=== PATIENT | female | born 1975 | race Caucasian/White ===

== ENCOUNTER → 2016-03-09 | Outpatient (REF) | payer BC ==
[~2016-03-09] MED LIST: ACET50TA PO; CIPR500T3 PO; COLA100C2; DRIS50002 PO; FEOSOL; GLYB5TAB5 PO; HYDR1TAB97 PO; IBUPOTC PO; IRON SUPPLEMENT PO; IRON325T3 PO; LASI20TA; LOPR100T; MULT1TAB10 PO; PERC5TAB6 PO; PERCOCET PO; PHEN-223 PO; PRIL20CA; PYRI200T; VICO5TAB; VITA100037 PO; VITA500T53 PO; [UNRECOGNIZED DRUG - OTHER]; [UNRECOGNIZED DRUG - OTHER]; [UNRECOGNIZED DRUG - REMARK]
== END ==
LOC: M SMT 10:19
PROVIDERS: ATTEND Urology
DX: N20.0 Calculus of kidney (principal)

== ENCOUNTER → 2016-03-17 | Outpatient (CLI) | payer BC ==
[~2016-03-17] MED LIST changes: +HYDR-3713 PO; -HYDR1TAB97 PO
[2016-03-17 13:51] LABS: IONIZED CALCIUM 5.3 MG/DL (4.5-5.3)
[2016-03-17 14:29] LABS: ANION GAP 9 MEQ/L (8-16); BLOOD UREA NITROGEN 7 MG/DL (7-18); CALCIUM LEVEL 9.9 MG/DL (8.5-10.1); CARBON DIOXIDE LEVEL 26 MEQ/L (21-32); CHLORIDE LEVEL 106 MEQ/L (98-107); CREATININE FOR GFR 0.48 MG/DL (0.55-1.02); GLOMERULAR FILTRATION RATE > 60.0 (>58); GLUCOSE, FASTING 87 MG/DL (70-105); MAGNESIUM LEVEL 2.1 MG/DL (1.8-2.4); PHOSPHORUS LEVEL 2.5 MG/DL (2.5-4.9); POTASSIUM SERUM 4.3 MEQ/L (3.5-5.1); SODIUM LEVEL 141 MEQ/L (136-145); URIC ACID 3.2 MG/DL (2.6-6.0)
== END ==
LOC: M SMT 10:32
PROVIDERS: ATTEND Nurse Practitioner Women's Health
DX: N20.0 Calculus of kidney (principal)

== ENCOUNTER → 2016-03-31 | Outpatient (CLI) | payer BC | LOC: M WUC 10:07 | PROVIDERS: ATTEND Internal Medicine Endocrinology, Diabetes & Metabolism | DX: E55.9 Vitamin D deficiency, unspecified (principal) ==

== ENCOUNTER → 2016-05-05 | Outpatient (CLI) | payer BC ==
--- NOTE | 2016-05-05 14:54 | REP ---
NUCLEAR PARATHYROID SCAN: Following the intravenous administration of 27.5 mCi of technetium 99m sestamibi, 15-minute delayed images are performed of the neck in the anterior and both anterior oblique projections followed by 3-hour delayed images in the same orientation. SPECT images are also performed of the neck in the axial, sagittal, and coronal planes. The initial 15-minute images show fairly symmetrical uptake in the thyroid bed. There is bilateral washout on the 3-hour delayed images. There is no persistent focus of increased uptake in the neck on the right or the left. There is no compelling scintigraphic evidence of parathyroid adenoma. IMPRESSION: No compelling scintigraphic evidence parathyroid adenoma. Signed by Bradley York MD 05/05/2016 04:44 P
== END ==
LOC: M RAD 09:38
PROVIDERS: ATTEND Physician Assistant Medical
DX: E21.4 Other specified disorders of parathyroid gland (principal)

== ENCOUNTER → 2016-07-20 | Outpatient (CLI) | payer BC | LOC: M WUC 09:15 | PROVIDERS: ATTEND Surgery | DX: E21.0 Primary hyperparathyroidism (principal) ==

== ENCOUNTER → 2016-08-11 | Outpatient (REF) | payer BC | LOC: M LAB REF 17:13 | PROVIDERS: ATTEND Specialist | DX: Z12.4 Encounter for screening for malignant neoplasm of cervix (principal) ==

== ENCOUNTER → 2016-09-06 | Outpatient (REF) | payer BC ==
[~2016-09-06] MED LIST changes: +PERC5TAB12 PO; -PERC5TAB6 PO; -PHEN-223 PO; +PHEN30CA2 PO; -VITA100037 PO; +VITA100067 PO
== END ==
LOC: M LAB REF 16:36
PROVIDERS: ATTEND Physician Assistant
DX: R30.0 Dysuria (principal)

== ENCOUNTER → 2016-09-12 | Outpatient (CLI) | payer BC ==
[2016-09-12 13:14] LABS: MEAN CORPUSCULAR HEMOGLOBIN 31.6 pg (27.0-33.0); MEAN CORPUSCULAR HGB CONC 34.8 g/dl (32.0-36.5); MEAN CORPUSCULAR VOLUME 90.9 fl (80.0-96.0); RED CELL DISTRIBUTION WIDTH 12.3 % (11.5-14.5); WHITE BLOOD COUNT 5.9 K/mm3 (4.0-10.0)
[2016-09-12 13:45] LABS: ALBUMIN 3.8 GM/DL (3.2-5.2); ALBUMIN/GLOBULIN RATIO 1.46 (1.00-1.93); ALKALINE PHOSPHATASE 90 U/L (45-117); ALT/SGPT 14 U/L (12-78); ANION GAP 8 MEQ/L (8-16); AST/SGOT 7 U/L (15-37); BILIRUBIN,TOTAL 0.4 MG/DL (0.2-1.0); BLOOD UREA NITROGEN 9 MG/DL (7-18); CALCIUM LEVEL 8.6 MG/DL (8.5-10.1); CARBON DIOXIDE LEVEL 25 MEQ/L (21-32); CHLORIDE LEVEL 106 MEQ/L (98-107); CHOLESTEROL LEVEL 166 MG/DL (<200); CREATININE FOR GFR 0.57 MG/DL (0.55-1.02); GLOMERULAR FILTRATION RATE > 60.0 (>58); GLUCOSE, FASTING 86 MG/DL (70-105); SODIUM LEVEL 139 MEQ/L (136-145); TOTAL PROTEIN 6.4 GM/DL (6.4-8.2); TRIGLYCERIDES LEVEL 123 MG/DL (<150)
== END ==
LOC: M WUC 09:35
PROVIDERS: ATTEND Nurse Practitioner Family
DX: E55.9 Vitamin D deficiency, unspecified (principal); E78.00 Pure hypercholesterolemia, unspecified

== ENCOUNTER → 2016-09-22 | Outpatient (REF) | payer BC | LOC: M SMT 16:58 | PROVIDERS: ATTEND Nurse Practitioner Women's Health | DX: N20.0 Calculus of kidney (principal) ==

== ENCOUNTER → 2016-10-04 | Outpatient (CLI) | payer BC ==
--- NOTE | 2016-10-04 10:05 | REP ---
CT ABDOMEN AND PELVIS WITHOUT CONTRAST: CT abdomen performed without oral or IV contrast, with sagittal and coronal reconstruction images performed. Comparison 02/11/2016. Visualized lung bases are clear. The patient has had a prior cholecystectomy and also appears to have had a prior gastric bypass surgery. The liver, spleen, adrenals, and pancreas are grossly unremarkable. Once again, there are multiple tiny calcifications in both kidneys and the configuration is essentially unchanged compared to the prior CT exam. The largest is in the lower pole of the right kidney and measures approximately 7 mm in diameter. No ureteral calculi are seen and there is no hydroureteronephrosis. Approximately 4 intrarenal calcifications are seen on the right and approximately 9 or 10 are seen on the left. There is no abdominal aortic aneurysm. There is no adenopathy. There is no free air or free fluid. No definite bowel wall thickening is seen. A few small midline anterior abdominal wall hernias are unchanged. No pelvic mass is seen. A metallic clip is seen in the left adnexal region. The urinary bladder is not optimally distended and therefore, not optimally evaluated. IMPRESSION: Multiple intrarenal calcifications appear essentially unchanged when compared to the prior study of 02/11/2016. Signed by Bradley York MD 10/04/2016 11:58 A
== END ==
LOC: M RAD 08:36
PROVIDERS: ATTEND Nurse Practitioner Women's Health
DX: N20.0 Calculus of kidney (principal)

== ENCOUNTER → 2016-11-22 | Outpatient (CLI) | payer BC ==
[2016-11-22 13:58] LABS: VITAMIN B12 LEVEL 771 PG/ML (247-911)
[2016-11-22 14:13] LABS: ALBUMIN 3.8 GM/DL (3.2-5.2); ALBUMIN/GLOBULIN RATIO 1.27 (1.00-1.93); ALKALINE PHOSPHATASE 87 U/L (45-117); ALT/SGPT 15 U/L (12-78); ANION GAP 5 MEQ/L (8-16); AST/SGOT 7 U/L (15-37); BILIRUBIN,TOTAL 0.6 MG/DL (0.2-1.0); BLOOD UREA NITROGEN 9 MG/DL (7-18); CALCIUM LEVEL 8.4 MG/DL (8.5-10.1); CARBON DIOXIDE LEVEL 26 MEQ/L (21-32); CHLORIDE LEVEL 110 MEQ/L (98-107); CHOLESTEROL LEVEL 173 MG/DL (<200); CREATININE FOR GFR 0.43 MG/DL (0.55-1.02); GLOMERULAR FILTRATION RATE > 60.0 (>58); GLUCOSE, FASTING 83 MG/DL (70-105); POTASSIUM SERUM 3.8 MEQ/L (3.5-5.1); SODIUM LEVEL 141 MEQ/L (136-145); TOTAL PROTEIN 6.8 GM/DL (6.4-8.2); TRIGLYCERIDES LEVEL 85 MG/DL (<150)
== END ==
LOC: M SMT 09:27
PROVIDERS: ATTEND Nurse Practitioner Family
DX: E78.00 Pure hypercholesterolemia, unspecified (principal); D51.9 Vitamin B12 deficiency anemia, unspecified; E55.9 Vitamin D deficiency, unspecified

== ENCOUNTER → 2016-11-22 | Outpatient (CLI) | payer BC ==
[2016-11-22 13:59] LABS: ALBUMIN 3.7 GM/DL (3.2-5.2); ALBUMIN/GLOBULIN RATIO 1.23 (1.00-1.93); ALKALINE PHOSPHATASE 81 U/L (45-117); ALT/SGPT 16 U/L (12-78); ANION GAP 6 MEQ/L (8-16); AST/SGOT 6 U/L (15-37); BILIRUBIN,TOTAL 0.5 MG/DL (0.2-1.0); BLOOD UREA NITROGEN 9 MG/DL (7-18); CALCIUM LEVEL 8.6 MG/DL (8.5-10.1); CARBON DIOXIDE LEVEL 24 MEQ/L (21-32); CHLORIDE LEVEL 111 MEQ/L (98-107); CREATININE FOR GFR 0.37 MG/DL (0.55-1.02); GLOMERULAR FILTRATION RATE > 60.0 (>58); GLUCOSE, FASTING 85 MG/DL (70-105); MAGNESIUM LEVEL 2.5 MG/DL (1.8-2.4); PHOSPHORUS LEVEL 3.2 MG/DL (2.5-4.9); POTASSIUM SERUM 3.9 MEQ/L (3.5-5.1); SODIUM LEVEL 141 MEQ/L (136-145); TOTAL PROTEIN 6.7 GM/DL (6.4-8.2); URIC ACID 3.4 MG/DL (2.6-6.0)
== END ==
LOC: M SMT 09:31
PROVIDERS: ATTEND Urology
DX: N20.0 Calculus of kidney (principal)

== ENCOUNTER → 2017-01-24 | Outpatient (CLI) | payer BC ==
--- NOTE | 2017-01-24 16:00 | REP ---
KUB, TWO VIEWS: HISTORY: Kidney stone. COMPARISON: 12/06/2008. Air is present in small and large intestine. There are no air fluid levels or dilated loops of intestine. There is no pneumoperitoneum. Surgical clips are present in the right upper quadrant and pelvis. A calcification is present in the region of the lower pole of the right kidney. This may represent nephrolithiasis. IMPRESSION: 1. Nonspecific bowel gas pattern. 2. There is a calcification overlying the lower pole of the right kidney that may represent nephrolithiasis. Signed by Aashish Radford MD 01/24/2017 04:03 P
== END ==
LOC: M SMT 14:17
PROVIDERS: ATTEND Nurse Practitioner Women's Health
DX: N20.0 Calculus of kidney (principal)

== ENCOUNTER → 2017-02-01 | Outpatient (CLI) | payer BC ==
[2017-02-01 14:29] LABS: ANION GAP 9 MEQ/L (8-16); BLOOD UREA NITROGEN 8 MG/DL (7-18); CALCIUM LEVEL 8.9 MG/DL (8.5-10.1); CARBON DIOXIDE LEVEL 25 MEQ/L (21-32); CHLORIDE LEVEL 105 MEQ/L (98-107); CREATININE FOR GFR 0.52 MG/DL (0.55-1.02); GLOMERULAR FILTRATION RATE > 60.0 (>58); GLUCOSE, FASTING 83 MG/DL (70-105); SODIUM LEVEL 139 MEQ/L (136-145)
== END ==
LOC: M SMT 09:20
PROVIDERS: ATTEND Registered Nurse
DX: E21.0 Primary hyperparathyroidism (principal)

== ENCOUNTER 2017-02-23 06:36 | Day surgery (SDC) | payer BC ==
[2017-02-23] MEDS ORDERED: SCOPOLAMINE 1MG TRANSDERMAL PATCH As Ordered (07:08)
[2017-02-23] MEDS: LR 1,000 ML IV ×2 (07:12→08:11)
[2017-02-23] MEDS ORDERED: LR 1,000 ML IV ×2 (07:30→08:45)
[2017-02-23] MEDS ORDERED: SCOPOLAMINE 1MG TRANSDERMAL PATCH TOP (08:00)
[2017-02-23] MEDS ORDERED: PERCOCET 5MG/325MG TAB PO ×2 (08:45)
[2017-02-23] MEDS ORDERED: METOCLOPRAMIDE INJ 10MG/2ML VIAL (J2765) IV (09:00)
[2017-02-23] MEDS ORDERED: fentaNYL 100 MCG/2 ML INJECTION (J3010) IV (09:00)
[2017-02-23] MEDS ORDERED: KETOROLAC 30 MG/ML VIAL (J1885) IV (09:00)
[2017-02-23] MEDS ORDERED: ONDANSETRON 4MG/2ML VIAL (J2405) IV (09:00)
[2017-02-23] MEDS: PERCOCET 5MG/325MG TAB PO ×2 (09:00→09:41)
[2017-02-23] MEDS ORDERED: MIDAZOLAM INJ 2 MG/2 ML VIAL (J2250) As Ordered (09:36)
[2017-02-23] MEDS ORDERED: LIDOCAINE 2% INJ 100 MG/5 ML SDV (FOR ANES.) As Ordered (09:36)
[2017-02-23] MEDS ORDERED: PROPOFOL 200 MG/20 ML VIAL As Ordered (09:36)
[2017-02-23] MEDS ORDERED: fentaNYL 100 MCG/2 ML INJECTION (J3010) As Ordered (09:36)
[2017-02-23] MEDS ORDERED: ONDANSETRON 4MG/2ML VIAL (J2405) As Ordered (09:37)
[2017-02-23] MEDS ORDERED: dexameTHASONE 4 MG/ML 1ML VIAL (J1100) As Ordered (09:37)
[2017-02-23] MEDS ORDERED: KETOROLAC 60 MG/2 ML VIAL (J1885) As Ordered (09:37)
== END 2017-02-23 11:07 | disposition home or self-care (01) ==
LOC: M SDC 06:36
DX: N92.0 Excessive and frequent menstruation with regular cycle (principal); Z98.84 Bariatric surgery status; Z87.442 Personal history of urinary calculi; Z91.040 Latex allergy status; Z88.0 Allergy status to penicillin; Z79.899 Other long term (current) drug therapy
CPT/HCPCS: 58563

== ENCOUNTER → 2017-03-20 | Outpatient (CLI) | payer BC ==
[2017-03-20 17:33] LABS: IONIZED CALCIUM 4.7 MG/DL (4.5-5.3)
[2017-03-20 19:56] LABS: PTH INTACT 167.5 PG/ML (14.0-72.0)
== END ==
LOC: M SMT 14:56
DX: E21.0 Primary hyperparathyroidism (principal)
CPT/HCPCS: 82310

== ENCOUNTER → 2017-04-06 | Outpatient (CLI) | payer BC ==
[2017-04-06 14:30] LABS: TOTAL 25(OH) VITAMIN D 18.2 NG/ML (30.0-100.0)
== END ==
LOC: M SMT 09:32
DX: E55.9 Vitamin D deficiency, unspecified (principal)
CPT/HCPCS: 82306

== ENCOUNTER → 2017-05-22 | Outpatient (REF) | payer BC ==
[2017-05-22 16:09] LABS: CALCIUM LEVEL 9.3 MG/DL (8.5-10.1)
[2017-05-22 16:10] LABS: PTH INTACT 81.2 PG/ML (18.5-88.0)
[2017-05-22 16:10] LABS: TOTAL 25(OH) VITAMIN D 28.8 NG/ML (30.0-100.0)
== END ==
LOC: M LABDRAW1 13:55
DX: E21.0 Primary hyperparathyroidism (principal); E55.9 Vitamin D deficiency, unspecified
CPT/HCPCS: 82310

== ENCOUNTER → 2017-09-20 | Outpatient (CLI) | payer BC ==
[2017-09-20 18:41] LABS: TOTAL 25(OH) VITAMIN D 46.1 NG/ML (30.0-100.0)
[2017-09-20 19:06] LABS: PTH INTACT 113.6 PG/ML (18.5-88.0)
== END ==
LOC: M SMT 14:44
DX: E21.0 Primary hyperparathyroidism (principal)
CPT/HCPCS: 82310

== ENCOUNTER → 2017-11-14 | Outpatient (CLI) | payer BC | LOC: M WUC 16:31 | DX: M25.551 Pain in right hip (principal) | CPT/HCPCS: 73110 ==

== ENCOUNTER → 2017-12-22 | Outpatient (REF) | payer BC ==
[2017-12-22 15:33] LABS: RHEUMATOID FACTOR QUANT < 10.0 IU/ML (<15.0); TOTAL PROTEIN 7.4 GM/DL (6.4-8.2)
[2017-12-22 15:34] LABS: FOLATE 12.4 NG/ML
[2017-12-26 13:44] LABS: ALBUMIN 4.51 GM/DL (3.29-5.55); ALPHA-1-GLOBULIN % 3.5 % (2.9-4.9); ALPHA-1-GLOBULINS 0.26 GM/DL (0.17-0.41); ALPHA-2-GLOBULINS 0.64 GM/DL (0.42-0.99); ALPHA-2-GLOBULINS % 8.7 % (7.1-11.8); BETA-1-GLOBULINS 0.45 GM/DL (0.28-0.60); BETA-1-GLOBULINS % 6.1 % (4.7-7.2); BETA-2-GLOBULINS 0.41 GM/DL (0.19-0.55); BETA-2-GLOBULINS % 5.6 % (3.2-6.5); GAMMA GLOBULIN % 15.1 % (11.1-18.8)
[2017-12-26 13:45] LABS: GAMMA GLOBULINS 1.12 GM/DL (0.65-1.58)
[2017-12-27 10:13] LABS: ANTINUCLEAR ANTIBODIES DIRECT Negative (Negative); VITAMIN B1 LEVEL WHOLE BLOOD 120.9 nmol/L (66.5-200.0); VITAMIN B6,PYRIDOXAL PHOSPHATE 3.3 ug/L (2.0-32.8); VITAMIN E(ALPHA TOCOPHEROL) 7.8 mg/L (7.0-25.1); VITAMIN E(GAMMA TOCOPHEROL) 1.3 mg/L (0.5-5.5)
[2017-12-27 10:50] LABS: DRVV SCREEN 36.2 SEC
[2017-12-27 10:53] LABS: PTT LUPUS TYPE ANTICOAG SCREEN 0.9 (0-1.2)
== END ==
LOC: M LABNEURO 09:44
DX: G43.909 Migraine, unspecified, not intractable, without status migrainosus (principal); M54.2 Cervicalgia; M54.5 Low back pain

== ENCOUNTER → 2017-12-22 | Outpatient (REF) | payer BC ==
[2017-12-22 14:36] LABS: ERYTHROCYTE SEDIMENTATION RATE 9 mm/hr (0-20)
[2017-12-22 15:20] LABS: CALCIUM LEVEL 8.8 MG/DL (8.5-10.1)
[2017-12-22 15:20] LABS: PHOSPHORUS LEVEL 2.8 MG/DL (2.5-4.9)
[2017-12-22 15:32] LABS: TOTAL 25(OH) VITAMIN D 26.3 NG/ML (30.0-100.0)
[2017-12-26 14:38] LABS: ANGIOTENSIN 1 CONVERTING ENZYM 28 U/L (14-82)
== END ==
LOC: M LABNEURO 09:42
DX: E67.3 Hypervitaminosis D (principal)

== ENCOUNTER → 2018-04-22 | Outpatient (REF) | payer BC ==
[~2018-04-22] MED LIST changes: +BACT800T5 PO; -DRIS50002 PO; +DRIS50003 PO; +FLOM0.4C39 PO; +KETO10TAB PO; +NITR100C2; +NORCOTAB PO; +ONDA4TAB6 PO; +OXYC1TAB23 PO; +ZONI100C2
== END ==
LOC: M LAB REF 11:00
PROVIDERS: ATTEND Physician Assistant
DX: R30.0 Dysuria (principal)

== ENCOUNTER 2018-04-25 13:03 | Emergency (ER) | payer BC ==
[~2018-04-25] VITALS: Ht 172.7 cm; Wt 104.5 kg
[~2018-04-25 13:03] MED LIST changes: -BACT800T5 PO; -FLOM0.4C39 PO; -KETO10TAB PO; -NITR100C2; -NORCOTAB PO; -ONDA4TAB6 PO; -ZONI100C2
[2018-04-25] MEDS ORDERED: ZONI100C2 (13:15)
[2018-04-25] MEDS ORDERED: NITR100C2 (13:15)
[2018-04-25] MEDS ORDERED: KETOROLAC 30 MG/ML VIAL (J1885) IV ONE (14:00)
[2018-04-25] MEDS ORDERED: ONDANSETRON 4MG/2ML VIAL (J2405) IV ONE (14:00)
[2018-04-25] MEDS ORDERED: NS 1,000 ML IV ONE (14:00)
[2018-04-25 14:19] LABS: BASO % 0.4 % (0.0-1.0); EOS # 0.1 10^3/uL (0.0-0.50); EOS % 0.8 % (0.0-3.0); HEMATOCRIT 39.3 % (36.0-47.0); HEMOGLOBIN 13.7 g/dl (12.0-15.5); LYMPH # 1.4 10^3/uL (1.5-4.5); LYMPH % 16.3 % (24.0-44.0); MEAN CORPUSCULAR HEMOGLOBIN 31.4 pg (27.0-33.0); MEAN CORPUSCULAR HGB CONC 34.9 g/dl (32.0-36.5); MEAN CORPUSCULAR VOLUME 90.1 fl (80.0-96.0); MONO # 0.4 10^3/uL (0.0-0.8); MONO % 4.9 % (0.0-5.0); NEUTROPHILS # 6.6 10^3/uL (1.8-7.7); NEUTROPHILS % 77.4 % (36.0-66.0); PLATELET COUNT, AUTOMATED 220 10^3/uL (150-450); RED BLOOD COUNT 4.36 10^6/uL (4.00-5.40); WHITE BLOOD COUNT 8.5 10^3/uL (4.0-10.0)
--- NOTE | 2018-04-25 14:43 | REP ---
Clinical: Left flank pain. Technique: Axial noncontrast images from the lung bases to the pubic symphysis with coronal and sagittal re-formations. Findings: Moderate acute left-sided obstructive uropathy with edematous enlargement of the kidney, hydroureternephrosis, and perinephric/periureteral stranding secondary to obstructing 3 mm and 4 mm calculi in the distal left ureter (images [id number]). Few smaller nonobstructing left intrarenal calculi are identified. The right kidney demonstrates nonobstructing calculi measuring up to approximately 6 mm. Bladder is grossly unremarkable. Liver, spleen, pancreas, and bilateral adrenal glands are normal. The patient is status post cholecystectomy and gastric bypass surgery. The enteric system is without obstruction or acute inflammatory process. Pelvis demonstrates normal bladder and age-appropriate uterus/adnexa. No ascites. No free air. No adenopathy. Fat containing ventral hernia noted. Musculoskeletal structures without focal osseous abnormality. Lung bases clear. Impression: Moderate left-sided acute obstructive uropathy as detailed above along with bilateral nonobstructing intrarenal calculi. Electronically Signed by Isaac Jackson MD 04/25/2018 02:35 P
[2018-04-25 14:45] LABS: ALBUMIN 4.1 GM/DL (3.2-5.2); ALT/SGPT 27 U/L (12-78); AMYLASE 16 U/L (25-115); BILIRUBIN,DIRECT 0.2 MG/DL (0.0-0.2); BILIRUBIN,TOTAL 0.5 MG/DL (0.2-1.0); BLOOD UREA NITROGEN 11 MG/DL (7-18); CALCIUM LEVEL 8.8 MG/DL (8.5-10.1); CARBON DIOXIDE LEVEL 24 MEQ/L (21-32); CHLORIDE LEVEL 107 MEQ/L (98-107); CREATININE FOR GFR 0.91 MG/DL (0.55-1.30); GLOMERULAR FILTRATION RATE > 60.0 (>58); GLUCOSE, FASTING 94 MG/DL (70-100); LIPASE 54 U/L (73-393); POTASSIUM SERUM 3.9 MEQ/L (3.5-5.1); SODIUM LEVEL 138 MEQ/L (136-145); TOTAL PROTEIN 7.4 GM/DL (6.4-8.2)
[2018-04-25] MEDS ORDERED: ONDA4TAB6 PO (15:13)
[2018-04-25] MEDS ORDERED: FLOM0.4C39 PO (15:13)
[2018-04-25] MEDS ORDERED: NORCOTAB PO (15:14)
[2018-04-25] MEDS ORDERED: KETO10TAB PO (15:15)
[2018-04-25] MEDS ORDERED: BACT800T5 PO (15:18)
[2018-04-25 15:29] VITALS: BP 113/68
[2018-05-10] MEDS ORDERED: ZONI25CA2 PO (12:52)
[2018-05-10] MEDS ORDERED: PHEN-239 PO (12:52)
== END 2018-04-25 15:33 | disposition home or self-care (01) ==
LOC: M ED 13:03
DX: N20.1 Calculus of ureter (principal); I10 Essential (primary) hypertension; K21.9 Gastro-esophageal reflux disease without esophagitis; F33.9 Major depressive disorder, recurrent, unspecified; G43.909 Migraine, unspecified, not intractable, without status migrainosus; Z98.84 Bariatric surgery status; Z79.899 Other long term (current) drug therapy; Z88.0 Allergy status to penicillin; Z91.040 Latex allergy status
CPT/HCPCS: 74176; 80048; 80076; 81001; 81025; 82150; 83690; 85025; 87086; 96361; 96374; 96375; 99284; J1885; J2405

== ENCOUNTER → 2018-05-03 | Outpatient (REF) | payer BC ==
[~2018-05-03] MED LIST changes: +BACT800T5 PO; +FLOM0.4C39 PO; +KETO10TAB PO; +NITR100C2; +NORCOTAB PO; +ONDA4TAB6 PO; +PHEN-239 PO; +ZONI100C2; +ZONI25CA2 PO
[2018-05-09 00:08] LABS: CA Oxalate Dihy 25 % (.); Ca Ox Monohydrate 60 % (.)
== END ==
LOC: M SMT 13:08
PROVIDERS: ATTEND Nurse Practitioner Women's Health
DX: N13.2 Hydronephrosis with renal and ureteral calculous obstruction (principal)

== ENCOUNTER → 2018-05-09 | Outpatient (CLI) | payer BC ==
[2018-05-09 11:55] LABS: HEMATOCRIT 40.4 % (36.0-47.0); MEAN CORPUSCULAR HEMOGLOBIN 30.4 pg (27.0-33.0); MEAN CORPUSCULAR HGB CONC 34.7 g/dl (32.0-36.5); MEAN CORPUSCULAR VOLUME 87.6 fl (80.0-96.0); PLATELET COUNT, AUTOMATED 237 10^3/uL (150-450); RED BLOOD COUNT 4.61 10^6/uL (4.00-5.40); WHITE BLOOD COUNT 5.7 10^3/uL (4.0-10.0)
[2018-05-09 12:03] LABS: BLOOD UREA NITROGEN 9 MG/DL (7-18); CALCIUM LEVEL 8.8 MG/DL (8.5-10.1); CARBON DIOXIDE LEVEL 21 MEQ/L (21-32); CHLORIDE LEVEL 111 MEQ/L (98-107); CREATININE FOR GFR 0.66 MG/DL (0.55-1.30); GLOMERULAR FILTRATION RATE > 60.0 (>58); GLUCOSE, FASTING 87 MG/DL (70-100); POTASSIUM SERUM 4.4 MEQ/L (3.5-5.1); SODIUM LEVEL 141 MEQ/L (136-145)
[2018-05-09 12:05] LABS: HCG, SERUM QUALITATIVE NEGATIVE (NEGATIVE)
[2018-05-09 12:13] LABS: INR 0.94; PROTHROMBIN TIME 12.7 SECONDS (12.1-14.4)
[2018-05-09 12:14] LABS: PARTIAL THROMBOPLASTIN TIME 29.6 SECONDS (25.4-37.6)
== END ==
LOC: M SMT 09:37
PROVIDERS: ATTEND Nurse Practitioner Women's Health
DX: N13.2 Hydronephrosis with renal and ureteral calculous obstruction (principal)

== ENCOUNTER 2018-05-23 11:20 | Day surgery (SDC) | payer BC ==
[~2018-05-23] VITALS: Ht 172.7 cm; Wt 103.4 kg
[~2018-05-23 11:20] MED LIST changes: +CIPROFLOXACIN 400 MG in APPROPRIATE DILUENT 1 EA IV ONE; +LR 1,000 ML IV ONE
[2018-05-23] MEDS ORDERED: IBUP80TA (11:59)
[2018-05-23] MEDS ORDERED: dexameTHASONE 4 MG/ML 1ML VIAL (J1100) As Ordered ONE (12:55)
[2018-05-23] MEDS ORDERED: GLYCOPYRROLATE INJ 0.2 MG/ML 2 ML VIAL As Ordered ONE (12:55)
[2018-05-23] MEDS ORDERED: LIDOCAINE 2% INJ 100 MG/5 ML SDV (FOR ANES.) As Ordered ONE (12:55)
[2018-05-23] MEDS ORDERED: ONDANSETRON 4MG/2ML VIAL (J2405) As Ordered ONE (12:55)
[2018-05-23] MEDS ORDERED: NEOSTIGMINE 10 MG/10 ML VIAL (J2710) As Ordered ONE (12:55)
[2018-05-23] MEDS ORDERED: PROPOFOL 200 MG/20 ML VIAL As Ordered ONE (12:55)
[2018-05-23] MEDS ORDERED: fentaNYL 100 MCG/2 ML INJECTION (J3010) As Ordered ONE (12:55)
[2018-05-23] MEDS ORDERED: MIDAZOLAM INJ 2 MG/2 ML VIAL (J2250) As Ordered ONE (12:55)
[2018-05-23] MEDS ORDERED: ROCURONIUM BROMIDE 50 MG/5 ML VIAL As Ordered ONE (12:55)
[2018-05-23] MEDS ORDERED: SCOPOLAMINE 1MG TRANSDERMAL PATCH As Ordered ONE (13:20)
[2018-05-23] MEDS ORDERED: SCOPOLAMINE 1MG TRANSDERMAL PATCH TOP ONE (13:30)
[2018-05-23] MEDS ORDERED: CONRAY-60 60% 50ML VIAL (Q9961) As Ordered ONE (13:38)
--- NOTE | 2018-05-23 15:25 | REP ---
C-ARM VIEWS ABDOMEN DURING URETERAL STENT PLACEMENT: Three C-arm views are performed. There is placement of bilateral ureteral stents. A small amount of contrast partially opacifies both renal collecting systems. Proximal end of each ureteral stent is in the renal pelvis bilaterally. The distal end is in the urinary bladder bilaterally. 25 seconds fluoroscopy time utilized. Electronically Signed by Bradley York MD 05/23/2018 04:58 P
[2018-05-23] MEDS ORDERED: NORCO, ANEXSIA 5/325MG TABLET (HYDROcodone/ACETAMINOPHEN) As Ordered ONE (15:37)
[2018-05-23] MEDS ORDERED: NORCO, ANEXSIA 5/325MG TABLET (HYDROcodone/ACETAMINOPHEN) PO PRN (16:00)
[2018-05-23] MEDS ORDERED: ONDANSETRON 4MG/2ML VIAL (J2405) IV PRN (16:00)
[2018-05-23] MEDS ORDERED: LR 1,000 ML IV SCH (16:00)
[2018-05-23] MEDS ORDERED: oxyBUTYnin 5 MG TAB PO PRN (16:00)
[2018-05-23] MEDS ORDERED: PERCOCET 5MG/325MG TAB PO PRN (16:00)
[2018-05-23] MEDS ORDERED: fentaNYL 100 MCG/2 ML INJECTION (J3010) IV PRN (16:00)
[2018-05-23 17:33] VITALS: BP 133/77
--- NOTE | 2018-05-25 09:15 | RO ---
DATE OF PROCEDURE: 05/23/2018 PREPROCEDURE DIAGNOSIS: Bilateral kidney and ureteral stones. POSTPROCEDURE DIAGNOSIS: Bilateral kidney and ureteral stones. PROCEDURE: Cystoscopy, bilateral ureteroscopy with laser lithotripsy and basket extraction of stones, bilateral retrograde pyelograms with intraoperative interpretation of images, and bilateral ureteral stent placement. SURGEON: Valentín Recinos MD VENDETTE: None. ANESTHESIA: General. OPERATIVE INDICATIONS: This is a 43-year-old female who, on preoperative imaging, was found to have two obstructing mid to distal left ureteral stones as well as nonobstructing bilateral kidney stones. She was brought to the operating room today for above-listed procedure. DESCRIPTION OF PROCEDURE: The patient was brought to the operating room, and general anesthesia was induced. Prophylactic antibiotics were infused. She was then placed in dorsal lithotomy position, prepped and draped in the usual sterile fashion. A guidewire was then advanced into the left collecting system. I then went up the left collecting system with a short semirigid ureteroscope and within the distal ureter, two stones were seen. They both were approximately 4 mm in size. Both stones were then grasped with a basket and withdrawn from the ureter. I then advanced the ureteral access sheath up the left collecting system. I then went up the access sheath with a flexible ureteroscope and examined the left kidney. One small stone was seen, and this was grasped with a basket and withdrawn. Once that was done, a retrograde pyelogram was performed and it was notable for moderate left hydronephrosis with no extravasation. I then withdrew the ureteroscope along with the access sheath. I then utilized the wire to advance a #6-Serbian x 22-32 cm JJ ureteral stent up the left collecting system. The wire was removed and there were adequate curls of the wire in the left renal pelvis and in the bladder. I then advanced the wire up the right collecting system and put a ureteral access sheath over the wire. I then went up the access sheath with a flexible ureteroscope, and the right kidney was thoroughly examined. Within a lower pole calyx, an approximately 7-8 mm stone was seen. This stone was then repositioned into an upper pole calyx to better fragment it. That stone was then fragmented into smaller pieces using a 200-micron laser fiber. All the fragments were then removed with a basket. Of note, a few other small stone fragments were seen within the kidney. They were also removed with a basket. Once satisfied all the stone fragments were removed, a retrograde pyelogram was performed and was notable for mild right hydronephrosis with no extravasation. I then withdrew the ureteral access sheath along with the ureteroscope, and no stones were seen within the ureter. I then utilized the previously placed wire to advance a #6-Serbian x 22-32 cm JJ ureteral stent up into the right collecting system. The wire was then removed, and there were adequate curls of the stent in the right renal pelvis and in the bladder. The bladder was then emptied of all fluids, and this marked the conclusion of the procedure. The patient was then taken out of dorsal lithotomy position, awakened from anesthesia, and transported to the recovery room in stable condition. ESTIMATED BLOOD LOSS: 5 mL. COMPLICATIONS: None. SPECIMENS: Kidney stone fragments. PLAN: The patient will followup in clinic in a few weeks for stent removal. BETY
[2018-05-29 00:09] LABS: CA Oxalate Dihy 30 % (.); COMMENT Note: (.); Ca Ox Monohydrate 35 % (.)
== END 2018-05-23 17:33 | disposition home or self-care (01) ==
LOC: M SDC 11:20
PROVIDERS: ATTEND Urology
DX: N20.1 Calculus of ureter (principal); N20.0 Calculus of kidney; Z91.040 Latex allergy status; Z88.0 Allergy status to penicillin; Z79.899 Other long term (current) drug therapy; Z87.891 Personal history of nicotine dependence
CPT/HCPCS: 52356; 74420; 82360; 88300; C1769; C1894; C2617; J0744; J1100; J2250; J2405; J2710; J3010; Q9961

== ENCOUNTER → 2018-06-18 | Outpatient (CLI) | payer BC ==
[~2018-06-18] MED LIST changes: -ACET50TA PO; -CIPROFLOXACIN 400 MG in APPROPRIATE DILUENT 1 EA IV ONE; +HYDR-3715 PO; +IBUP80TA; -LR 1,000 ML IV ONE; +MAPA500T17 PO; -NORCOTAB PO; +VITA500T17 PO; -VITA500T53 PO
[2018-06-18 18:20] LABS: CALCIUM LEVEL 8.5 MG/DL (8.5-10.1); PHOSPHORUS LEVEL 2.6 MG/DL (2.5-4.9)
[2018-06-18 18:30] LABS: PTH INTACT 122.9 PG/ML (18.5-88.0); TOTAL 25(OH) VITAMIN D 30.5 NG/ML (30.0-100.0)
== END ==
LOC: M SMT 14:04
PROVIDERS: ATTEND Internal Medicine Endocrinology, Diabetes & Metabolism
DX: E21.0 Primary hyperparathyroidism (principal)

== ENCOUNTER → 2018-06-21 | Outpatient (CLI) | payer BC ==
[2018-06-21 13:47] LABS: BASO % 0.6 % (0.0-1.0); EOS # 0.2 10^3/uL (0.0-0.50); EOS % 3.6 % (0.0-3.0); HEMATOCRIT 38.7 % (36.0-47.0); HEMOGLOBIN 13.1 g/dl (12.0-15.5); LYMPH # 1.6 10^3/uL (1.5-4.5); LYMPH % 30.8 % (24.0-44.0); MEAN CORPUSCULAR HEMOGLOBIN 30.7 pg (27.0-33.0); MEAN CORPUSCULAR HGB CONC 33.9 g/dl (32.0-36.5); MEAN CORPUSCULAR VOLUME 90.6 fl (80.0-96.0); MONO # 0.3 10^3/uL (0.0-0.8); NEUTROPHILS # 3.1 10^3/uL (1.8-7.7); NEUTROPHILS % 59.6 % (36.0-66.0); PLATELET COUNT, AUTOMATED 230 10^3/uL (150-450); RED BLOOD COUNT 4.27 10^6/uL (4.00-5.40); WHITE BLOOD COUNT 5.2 10^3/uL (4.0-10.0)
[2018-06-21 13:58] LABS: ALBUMIN 3.6 GM/DL (3.2-5.2); ALT/SGPT 23 U/L (12-78); BILIRUBIN,TOTAL 0.4 MG/DL (0.2-1.0); BLOOD UREA NITROGEN 13 MG/DL (7-18); CALCIUM LEVEL 8.2 MG/DL (8.5-10.1); CARBON DIOXIDE LEVEL 29 MEQ/L (21-32); CHLORIDE LEVEL 109 MEQ/L (98-107); CHOLESTEROL LEVEL 169 MG/DL (<200); CHOLESTEROL RISK RATIO 3.129 (<5); FREE T4 1.04 NG/DL (0.76-1.46); GLOMERULAR FILTRATION RATE > 60.0 (>58); GLUCOSE, FASTING 84 MG/DL (70-100); HDL CHOLESTEROL 54 MG/DL (>40); LDL CHOLESTEROL 95 MG/DL (<100); NON-HDL-C 115 MG/DL; POTASSIUM SERUM 4.3 MEQ/L (3.5-5.1); SODIUM LEVEL 141 MEQ/L (136-145); TOTAL PROTEIN 6.8 GM/DL (6.4-8.2); TRIGLYCERIDES LEVEL 101 MG/DL (<150)
[2018-06-21 14:31] LABS: PTH INTACT 95.3 PG/ML (18.5-88.0); TOTAL 25(OH) VITAMIN D 24.4 NG/ML (30.0-100.0)
[2018-06-21 14:45] LABS: VITAMIN B12 LEVEL 664 PG/ML (247-911)
== END ==
LOC: M SMT 09:17
PROVIDERS: ATTEND Physician Assistant Medical
DX: I10 Essential (primary) hypertension (principal); R53.83 Other fatigue; Z13.220 Encounter for screening for lipoid disorders

== ENCOUNTER → 2018-12-21 | Outpatient (CLI) | payer BC ==
--- NOTE | 2018-12-21 16:27 | REP ---
HISTORY: History of renal calculi. COMPARISON: 01/24/2017 FINDINGS: KUB shows the intestinal gas pattern to be nonspecific. The organ silhouettes insofar as delineated are unremarkable. There is no evidence of free intraperitoneal air. A few vague calcifications appear to be superimposed over the left nephric silhouette. This was obscured by bowel content on the prior exam. I cannot rule out renal calculi. IMPRESSION: Nonspecific. A few vague calcifications appear to be superimposed over the left nephric silhouette. This was obscured by bowel content on the prior exam. I cannot rule out renal calculi. Electronically Signed by Greg Yepez DO 12/21/2018 04:46 P
== END ==
LOC: M SMT 13:56
PROVIDERS: ATTEND Urology
DX: N20.0 Calculus of kidney (principal)

== ENCOUNTER → 2019-01-03 | Outpatient (CLI) | payer BC ==
[2019-01-03 13:30] LABS: BASO % 0.6 % (0.0-1.0); EOS # 0.1 10^3/uL (0.0-0.5); HEMATOCRIT 43.1 % (36.0-47.0); HEMOGLOBIN 14.3 g/dl (12.0-15.5); LYMPH # 1.6 10^3/uL (1.5-5.0); MEAN CORPUSCULAR HEMOGLOBIN 30.6 pg (27.0-33.0); MEAN CORPUSCULAR HGB CONC 33.2 g/dl (32.0-36.5); MEAN CORPUSCULAR VOLUME 92.3 fl (80.0-96.0); MONO # 0.3 10^3/uL (0.0-0.8); MONO % 5.1 % (0.0-5.0); NEUTROPHILS # 3.4 10^3/uL (1.5-8.5); NEUTROPHILS % 62.9 % (36.0-66.0); PLATELET COUNT, AUTOMATED 210 10^3/uL (150-450); RED BLOOD COUNT 4.67 10^6/uL (4.00-5.40); WHITE BLOOD COUNT 5.4 10^3/uL (4.0-10.0)
[2019-01-03 14:03] LABS: ALBUMIN 3.8 GM/DL (3.2-5.2); ALT/SGPT 28 U/L (12-78); BILIRUBIN,TOTAL 0.5 MG/DL (0.2-1.0); BLOOD UREA NITROGEN 11 MG/DL (7-18); CALCIUM LEVEL 8.9 MG/DL (8.5-10.1); CARBON DIOXIDE LEVEL 27 MEQ/L (21-32); CHLORIDE LEVEL 109 MEQ/L (98-107); CHOLESTEROL LEVEL 190 MG/DL (<200); CHOLESTEROL RISK RATIO 3.015 (<5); CREATININE FOR GFR 0.55 MG/DL (0.55-1.30); FREE T3 2.6 PG/ML (2.2-4.0); GLOMERULAR FILTRATION RATE > 60.0 (>58); GLUCOSE, FASTING 85 MG/DL (70-100); HDL CHOLESTEROL 63 MG/DL (>40); LDL CHOLESTEROL 105 MG/DL (<100); NON-HDL-C 127 MG/DL; POTASSIUM SERUM 3.9 MEQ/L (3.5-5.1); SODIUM LEVEL 140 MEQ/L (136-145); TRIGLYCERIDES LEVEL 108 MG/DL (<150)
[2019-01-03 14:04] LABS: PTH INTACT 71.8 PG/ML (18.5-88.0); TOTAL 25(OH) VITAMIN D 22.8 NG/ML (30.0-100.0)
[2019-01-03 14:05] LABS: FOLATE 5.9 NG/ML; VITAMIN B12 LEVEL 450 PG/ML
== END ==
LOC: M SMT 09:30
PROVIDERS: ATTEND Physician Assistant Medical
DX: R53.83 Other fatigue (principal); I10 Essential (primary) hypertension; E03.9 Hypothyroidism, unspecified; Z98.84 Bariatric surgery status; E78.2 Mixed hyperlipidemia

== ENCOUNTER → 2019-02-06 | Outpatient (REF) | payer BC | LOC: M SFHCWAGY 13:34 | PROVIDERS: ATTEND Specialist | DX: Z12.4 Encounter for screening for malignant neoplasm of cervix (principal) ==

== ENCOUNTER → 2019-05-23 | Outpatient (CLI) | payer BC ==
[~2019-05-23] MED LIST changes: +ZONI100C17; -ZONI100C2; +ZONI25CA13 PO; -ZONI25CA2 PO
[2019-05-23 12:43] LABS: BASO % 0.4 % (0.0-1.0); EOS # 0.2 10^3/uL (0.0-0.5); EOS % 2.6 % (0.0-3.0); HEMATOCRIT 42.1 % (36.0-47.0); HEMOGLOBIN 14.3 g/dl (12.0-15.5); LYMPH # 2.2 10^3/uL (1.5-5.0); LYMPH % 32.3 % (24.0-44.0); MEAN CORPUSCULAR HEMOGLOBIN 31.2 pg (27.0-33.0); MEAN CORPUSCULAR VOLUME 91.7 fl (80.0-96.0); MONO # 0.4 10^3/uL (0.0-0.8); MONO % 6.3 % (0.0-5.0); PLATELET COUNT, AUTOMATED 233 10^3/uL (150-450); RED BLOOD COUNT 4.59 10^6/uL (4.00-5.40); WHITE BLOOD COUNT 6.9 10^3/uL (4.0-10.0)
[2019-05-23 13:22] LABS: ALBUMIN 3.8 GM/DL (3.2-5.2); ALT/SGPT 22 U/L (12-78); BILIRUBIN,TOTAL 0.5 MG/DL (0.2-1.0); BLOOD UREA NITROGEN 10 MG/DL (7-18); CALCIUM LEVEL 8.8 MG/DL (8.5-10.1); CARBON DIOXIDE LEVEL 28 MEQ/L (21-32); CHLORIDE LEVEL 109 MEQ/L (98-107); CHOLESTEROL LEVEL 193 MG/DL (<200); CHOLESTEROL RISK RATIO 3.163 (<5); CREATININE FOR GFR 0.68 MG/DL (0.55-1.30); FREE T4 0.98 NG/DL (0.76-1.46); GLOMERULAR FILTRATION RATE > 60.0 (>58); GLUCOSE, FASTING 91 MG/DL (70-100); HDL CHOLESTEROL 61 MG/DL (>40); LDL CHOLESTEROL 112 MG/DL (<100); NON-HDL-C 132 MG/DL; POTASSIUM SERUM 3.6 MEQ/L (3.5-5.1); SODIUM LEVEL 140 MEQ/L (136-145); TOTAL PROTEIN 7.1 GM/DL (6.4-8.2); TRIGLYCERIDES LEVEL 101 MG/DL (<150)
[2019-05-23 13:24] LABS: TOTAL 25(OH) VITAMIN D 20.2 NG/ML (30.0-100.0)
== END ==
LOC: M WUC 08:49
PROVIDERS: ATTEND Physician Assistant Medical
DX: R53.83 Other fatigue (principal); I10 Essential (primary) hypertension; E78.2 Mixed hyperlipidemia; E55.9 Vitamin D deficiency, unspecified

== ENCOUNTER → 2019-05-23 | Outpatient (CLI) | payer BC ==
--- NOTE | 2019-05-23 11:20 | REP ---
KUB ABDOMEN AND PELVIS: Two KUB films of abdomen and pelvis performed and compared to a prior study of 12/21/2018. There is overlying bowel gas and fecal material in the upper abdomen limiting evaluation for underlying renal stones. There does appear to be a punctate calcification overlying the lower pole of the left kidney. There are two or three calcifications overlying the lower pole of the right kidney measuring up to 4 mm. Metallic clip is seen in the left pelvis. Bowel gas pattern is normal. There are metallic clips in the upper abdomen. IMPRESSION: Suspected tiny intrarenal calculi as discussed above. Electronically Signed by Bradley York MD 05/23/2019 04:51 P
== END ==
LOC: M WUC 08:44
PROVIDERS: ATTEND Urology
DX: N20.0 Calculus of kidney (principal)

== ENCOUNTER → 2019-06-12 | Outpatient (CLI) | payer BC ==
--- NOTE | 2019-06-13 07:26 | REP ---
Clinical: Nephrolithiasis. Technique: Axial noncontrast images from the lung bases to the pubic symphysis with coronal and sagittal re-formations. Comparison: 04/25/2018. Findings: Multiple bilateral nonobstructing intrarenal calculi are identified measuring up to 4 mm in the left kidney and 5 mm in the right kidney without perinephric stranding, hydroureteronephrosis, or obstructing ureteral calculi. Bladder is unremarkable. Further evaluation of the pelvis demonstrates age appropriate uterus / adnexa. Liver, spleen, pancreas, and bilateral adrenal glands are normal. Evidence for prior gastric bypass surgery and cholecystectomy. The enteric system is without obstruction or acute inflammatory process. Multiple small midline supraumbilical / periumbilical ventral fat-containing hernia is noted. No ascites. No free air. No adenopathy. Abdominal aorta without aneurysm or dissection. Impression: 1. Bilateral nonobstructing nephroliths measuring up to 5 mm without evidence for obstruction or acute uropathy. 2. Multiple small stable fat-containing midline ventral hernias. Electronically Signed by Isaac Jackson MD 06/13/2019 07:16 A
== END ==
LOC: M RAD 08:20
PROVIDERS: ATTEND Urology
DX: N20.0 Calculus of kidney (principal)

== ENCOUNTER → 2019-06-26 | Outpatient (REF) | payer BC ==
[~2019-06-26] MED LIST changes: +BENA25CA4 PO; +CYAN500T8 PO; +FERR325T3 PO; +NORT10CA2 PO; +VITAD1000T PO
[2019-06-26 15:11] LABS: HEMOGLOBIN 14.4 g/dl (12.0-15.5); MEAN CORPUSCULAR HEMOGLOBIN 31.5 pg (27.0-33.0); MEAN CORPUSCULAR HGB CONC 35.1 g/dl (32.0-36.5); MEAN CORPUSCULAR VOLUME 89.7 fl (80.0-96.0); PLATELET COUNT, AUTOMATED 245 10^3/uL (150-450); RED BLOOD COUNT 4.57 10^6/uL (4.00-5.40); WHITE BLOOD COUNT 6.1 10^3/uL (4.0-10.0)
[2019-06-26 15:37] LABS: BLOOD UREA NITROGEN 8 MG/DL (7-18); CALCIUM LEVEL 8.8 MG/DL (8.5-10.1); CARBON DIOXIDE LEVEL 24 MEQ/L (21-32); CHLORIDE LEVEL 109 MEQ/L (98-107); GLOMERULAR FILTRATION RATE > 60.0 (>58); GLUCOSE, FASTING 56 MG/DL (70-100); POTASSIUM SERUM 3.7 MEQ/L (3.5-5.1); SODIUM LEVEL 139 MEQ/L (136-145)
== END ==
LOC: M LABSMT 13:34
PROVIDERS: ATTEND Urology
DX: Z01.818 Encounter for other preprocedural examination (principal); N20.0 Calculus of kidney; N39.0 Urinary tract infection, site not specified

== ENCOUNTER → 2019-07-01 | Outpatient (CLI) | payer BC | LOC: M LABSMTC 10:14 | PROVIDERS: ATTEND Anesthesiology | DX: Z11.59 Encounter for screening for other viral diseases (principal); Z01.818 Encounter for other preprocedural examination ==

== ENCOUNTER 2019-07-03 07:10 | Day surgery (SDC) | payer BC ==
[~2019-07-03] VITALS: Ht 175.3 cm; Wt 103.4 kg
[~2019-07-03 07:10] MED LIST changes: +LR 1,000 ML IV ONE; +LevoFLOXacin IV 500 MG in IV 1 EA IV ONE
[2019-07-03] MEDS ORDERED: dexameTHASONE 4 MG/ML 1ML VIAL (J1100 PER 1MG) As Ordered ONE (07:16)
[2019-07-03] MEDS ORDERED: fentaNYL 100 MCG/2 ML INJECTION (J3010) As Ordered ONE (07:16)
[2019-07-03] MEDS ORDERED: propofoL 200 MG/20 ML VIAL As Ordered ONE (07:16)
[2019-07-03] MEDS ORDERED: LIDOCAINE 2% 100MG/5ML SDV (FOR ANES.) As Ordered ONE (07:16)
[2019-07-03] MEDS ORDERED: ONDANSETRON 4MG/2ML VIAL As Ordered ONE (07:16)
[2019-07-03] MEDS ORDERED: MIDAZOLAM INJ 2MG/2ML VIAL (J2250 PER 1MG) As Ordered ONE (07:16)
[2019-07-03] MEDS ORDERED: CONRAY-60 60% 50ML VIAL (Q9961) As Ordered ONE (07:27)
[2019-07-03] MEDS ORDERED: SCOPOLAMINE 1MG TRANSDERMAL PATCH As Ordered ONE (08:56)
[2019-07-03] MEDS ORDERED: SCOPOLAMINE 1MG TRANSDERMAL PATCH TOP ONE (09:00)
[2019-07-03] MEDS ORDERED: ACETAMINOPHEN 1000MG 100ML IV BTL (OFIRMEV) (J0131 PER 10MG) As Ordered ONE (09:33)
[2019-07-03] MEDS ORDERED: KETOROLAC 60 MG/2 ML VIAL As Ordered ONE (09:35)
[2019-07-03] MEDS ORDERED: oxyBUTYnin 5 MG TAB PO PRN (10:15)
[2019-07-03] MEDS ORDERED: ONDANSETRON 4MG/2ML VIAL IV PRN (10:15)
[2019-07-03] MEDS ORDERED: PERCOCET 5MG/325MG TAB PO PRN ×2 (10:15)
[2019-07-03] MEDS ORDERED: LR 1,000 ML IV SCH (10:15)
[2019-07-03 12:00] VITALS: BP 143/80
--- NOTE | 2019-07-03 14:49 | REP ---
C-ARM VIEWS ABDOMEN DURING BILATERAL URETERAL STENT PLACEMENT: Multiple C-arm views abdomen and pelvis are performed during placement of bilateral ureteral stents. The proximal end of each stent is in the respective renal pelvis and the distal end in the urinary bladder. 22 seconds of fluoroscopy time utilized. Electronically Signed by Bradley York MD 07/03/2019 03:09 P
--- NOTE | 2019-07-05 19:57 | RO ---
DATE OF PROCEDURE: 07/03/2019 PREPROCEDURE DIAGNOSIS: Bilateral kidney stones. POSTPROCEDURE DIAGNOSIS: Bilateral kidney stones. PROCEDURE: Cystoscopy, bilateral ureteroscopy with basket extraction of stones, bilateral retrograde pyelograms with intraoperative interpretation of images, bilateral ureteral stent placement. SURGEON: Valentín Recinos MD LANDSCAPE DRAFTER: None. ANESTHESIA: General. OPERATIVE INDICATIONS: This is a 44-year-old female with a long history of kidney stones, who on recent surveillance imaging was found to have recurrent stones in both kidneys. She was brought to the operating room today for treatment. DESCRIPTION OF PROCEDURE: The patient was brought to the operating room and general anesthesia induced. Prophylactic antibiotics were infused. She was then placed in the dorsal lithotomy position and prepped and draped in the usual sterile fashion. A rigid cystoscope was then inserted into the urethral meatus and advanced into the bladder. A guidewire was advanced up the left collecting system. I then advanced the ureteral access sheath up the left collecting system. I went up the access sheath with flexible ureteroscope and examined the kidney thoroughly. Within the mid to lower pole calyx, she had approximately a 4-5 mm size calcification growing off of papilla. The stone was grasped with a basket and removed. Of note, all of the papilla in the left kidney contained tiny calcifications significant for nephrocalcinosis, though only the one stone that was 4-5 mm appeared to be large enough to actually be removed. At this point, a retrograde pyelogram was performed. It was notable for mild left hydronephrosis with no extravasation. I then withdrew the ureteroscope along with the access sheath and no stones were seen within the ureter. I then utilized the wire to advance a 6-Cypriot x 22-32 cm JJ ureteral stent into the left collecting system. The wire was removed, and there were adequate curls of the stent in the left renal pelvis and in the bladder. I then advanced a guidewire up the right collecting system. I advanced a ureteral access sheath over the wire and went up the access sheath with a flexible ureteroscope. The right kidney was thoroughly examined and similar to the left side. All the papilla contained small calcifications, significant for nephrocalcinosis. Within the lower pole calyx, there were two stones growing off of papilla, each approximately 5 mm in size. These stones were grasped with a basket and withdrawn. No additional large stones were seen. A retrograde pyelogram was performed, notable for mild right hydronephrosis with no extravasation. I then withdrew the ureteroscope along with the access sheath and no additional stones were seen within the ureter. I then utilized a wire to advance a 6-Cypriot x 22-32 cm JJ ureteral stent into the right collecting system. The wire was removed, and there were adequate curls of the stent in the right renal pelvis and in the bladder. The bladder was emptied of all fluids, and this marked the conclusion of the procedure. The patient was taken out of the dorsal lithotomy position, awakened from anesthesia, transported to the recovery room in stable condition. Estimated blood loss: 5 mL. Complications: None. Specimens: Kidney stones. PLAN: The patient will followup in the clinic next week for stent removal. After her stents are removed, we will set her up for a nephrology consult referral for medical management of kidney stones.
== END 2019-07-03 12:30 | disposition home or self-care (01) ==
LOC: M SDC 07:10
PROVIDERS: ATTEND Urology
DX: N20.0 Calculus of kidney (principal); D64.9 Anemia, unspecified; G43.909 Migraine, unspecified, not intractable, without status migrainosus; Z79.899 Other long term (current) drug therapy; Z91.040 Latex allergy status; Z88.0 Allergy status to penicillin
CPT/HCPCS: 52356; 74420; 82365; 88300; C1769; C1894; C2617; J0131; J1100; J1885; J1956; J2250; J2405; J3010; Q9961

== ENCOUNTER → 2019-08-12 | Outpatient (REF) | payer BC ==
[~2019-08-12] MED LIST changes: +BUPR15TA PO; +CIPR-249 PO; +CYAN500T14 PO; -CYAN500T8 PO; +CYCL-707 PO; +D31000TA2 PO; +HYDR12CA PO; +IBUP200C25 PO; -LR 1,000 ML IV ONE; -LevoFLOXacin IV 500 MG in IV 1 EA IV ONE; +NALT50TA4 PO; +NITR-67 PO; +OXYB5TAB10 PO; +POTA10808 PO; +PYRI1TAB5 PO; -VITAD1000T PO; -ZONI100C17; +ZONI100C17 PO
== END ==
LOC: M LAB REF 17:55
PROVIDERS: ATTEND Internal Medicine Nephrology
DX: N20.0 Calculus of kidney (principal)

== ENCOUNTER → 2019-10-01 | Outpatient (CLI) | payer BC ==
[~2019-10-01] MED LIST changes: -CYAN500T14 PO; +CYAN500T8 PO
--- NOTE | 2019-10-22 15:12 | REPMRS ---
Patient History The patient states she had a clinical breast exam in 01/2019. No known family history of cancer. No Hormone Replacement Therapy Digital Woman Screen Mammo: October 01, 2019 - Exam #: [id number] Bilateral CC and MLO view(s) were taken. Technologist: Randa Hurt, Technologist No prior studies available for comparison. FINDINGS: The breast tissue is almost entirely fat. The Volpara volumetric breast density category is: A. There is 9 mm nodule in the infero lateral quadrant of the left breast which merits further evaluation. There is no other evidence of dominant mass, architectural distortion, or grouped microcalcification typical of malignancy. 3-D tomosynthesis shows no additional findings. Report was delayed due to a protracted computer network disruption experienced by this facility. Assessment: BI-RADS/ACR category 0 mammogram, Incomplete: Need additional imaging evaluation and/or prior mammograms for comparison. Recommendation Ultrasound and special view mammogram of the left breast. This patient's Lifetime Breast Cancer RIsk is estimated at 12.8 %. This mammogram was interpreted with the aid of an FDA-approved computer-aided dectection system. Electronically Signed By: Dar Dillon MD 10/22/19 [id number]
== END ==
LOC: M WHC 14:51
PROVIDERS: ATTEND Specialist
DX: Z12.31 Encounter for screening mammogram for malignant neoplasm of breast (principal)

== ENCOUNTER → 2019-10-31 | Outpatient (CLI) | payer BC ==
--- NOTE | 2019-11-26 14:03 | REP ---
DIAGNOSTIC MAMMOGRAM LEFT BREAST AND LEFT BREAST ULTRASOUND TECHNIQUE: Spot compression views of the left breast are preformed including a tomographic sequence in the ML projection. These confirm the presence of s subcentimeter irregular nodule in the inferolateral left breast. Real-time sonographic evaluation of the left breast performed in the inferolateral aspect. FINDINGS: A solid irregular nodule is seen corresponding to the mammographic abnormality with a maximum diameter of 8 mm. This is suspicious. IMPRESSION: ACR 4 suspicious. Spot compression views and ultrasound confirm the presence of a solid nodule with irregular margins in the inferolateral aspect of the left breast, in the mid third of the breast. By ultrasound, the maximum diameter is 8 mm. Ultrasound-guided biopsy is recommended with Postprocedure mammography. Patient letter 4. MTDD
== END ==
LOC: M WHC 09:03
PROVIDERS: ATTEND Specialist
DX: Z12.31 Encounter for screening mammogram for malignant neoplasm of breast (principal); N63.25 Unspecified lump in the left breast, overlapping quadrants

== ENCOUNTER → 2019-11-11 | Outpatient (CLI) | payer BC ==
--- NOTE | 2019-11-28 17:38 | REP ---
NONCONTRAST CT OF THE ABDOMEN AND PELVIS CLINICAL: Nephrolithiasis. TECHNIQUE: Axial noncontrast images from the lung bases to the pubic symphysis with coronal and sagittal reformations. COMPARISON: 06/12/2019 FINDINGS: Lung bases are clear. Visualized heart and pericardium normal. Fatty infiltration to the liver noted. Spleen, pancreas, and bilateral adrenal glands are normal. Evidence for prior cholecystectomy. The kidneys demonstrate bilateral nonobstructing intrarenal calculi measuring up to 3 mm in the left kidney and 13 x 3 mm in the right kidney. No perinephric stranding, hydroureteronephrosis, or obstructing ureteral calculi are identified. The enteric system is without obstruction or acute inflammatory process. There is an anterior abdominal wall Mauricio hernia containing the antimesenteric wall of the transverse colon (images [id number]). Remainder of the small and large bowel is unremarkable. Pelvis demonstrates normal bladder and age appropriate uterus/adnexa. No ascites. No free air. No adenopathy. Abdominal aorta without aneurysm. Musculoskeletal structures are intact. IMPRESSION: * Bilateral nephrolithiasis. * Mauricio hernia in the anterior abdominal wall containing antimesenteric wall of the transverse colon and small amount of mesenteric fat. MTDD
== END ==
LOC: M RAD 10:00
PROVIDERS: ATTEND Internal Medicine Nephrology
DX: N20.0 Calculus of kidney (principal)

== ENCOUNTER → 2019-11-13 | Outpatient (CLI) | payer BC ==
[2019-11-13 13:14] VITALS: BP 132/68
--- NOTE | 2019-11-13 17:11 | ROOPDOC ---
[facility] Report Of Operation Report of Operation DATE OF PROCEDURE: 11/13/19 PREPROCEDURE DIAGNOSES: Left breast suspicious 4:00 o'clock lesion POSTPROCEDURE DIAGNOSES: same. PROCEDURE: Left breast ultrasound-guided biopsy of 4:00 lesion SURGEON: Jonatan Armendariz ANESTHESIA: Local anesthetic was used ESTIMATED BLOOD LOSS: Minimal COMPLICATIONS: none REMARKS: Postbiopsy clip is seen on mammogram in expected position. DESCRIPTION OF PROCEDURE: Lidocaine 1% LOT [id number] Expiration 09/2022 Sodium Bicarbonate 8.4% LOT [id number] Expiration 07/2020 Hydromark clip LOT [id number] Expiration 06/2022 SHAPE 3 Bx device: BARD [id number] x10 cm LOT [id number] Expiration 06/2022 Informed consent was obtained. The most common risk and possible complications including bleeding, hematoma, bruising, infection, injury to surrounding structures were explained to the patient and she expressed understanding. Patient was placed on the bed in the supine position. Appropriate time out was done stating patients name, date of , and the procedure to be performed. The left breast was prepped and draped in the usual fashion. The ultrasound was used to confirm the location of the lesion in the left breast at 4:00 4.5 ce ntimeters from the nipple. Plain Lidocaine 1% and 8.4% sodium bicarbonate 10:1 mix was used to anesthetize the skin, the biopsy site and tissues along the anticipated biopsy tract. Small skin incision was made with blade number 11. BARD Marquee 14G cannula with introducer ([id number]) was inserted through the incision and advanced under the ultrasound guidance to position immediately adjacent to the lesion. Next, the introducer was removed and BARD Marquee 14G biopsy device was places in the cannula. Pre-biopsy imaging, and post-biopsy imaging were captured. Five good core biopsies were taken at various levels of the lesion. Specimen was placed in formaldehyde, labeled with appropriate biopsy site and patients name, and sent to pathology for evaluation. Next, the biopsy device was withdrawn and a clip introducer was inserted into the biopsy site via the cannula. The SHAPE 3 Hydromark clip was deployed under sonographic guidance. Post-clip placement image was captured. Manual pressure over the biopsy cavity and tract was held after the clip introducer was withdrawn. No bleeding was noted upon removal of the pressure. Post-biopsy mammogram of the left breast was obtained and showed clip in expected position. Postprocedural dressing was placed. Patient tolerated procedure well. Discharge instructions were discussed with the patient and she expressed understanding. JONATAN ARMENDARIZ DO Nov 13, 2019 17:11
--- NOTE | 2019-11-28 17:36 | REP ---
LEFT BREAST ULTRASOUND GUIDANCE: HISTORY: Left breast nodule. COMPARISON: Breast sonography from 10/31/2019. FINDINGS: Sonographic guidance is provided to Dr. Simental who performed an ultrasound- guided needle biopsy procedure and marker clip placement. BETY
--- NOTE | 2019-11-28 17:37 | REP ---
DIGITAL DIAGNOSTIC UNILATERAL LEFT BREAST MAMMOGRAPHY: 2-VIEWS HISTORY: Ultrasound-guided needle biopsy procedure with marker clip placement. Marker clip placement mammographic views. COMPARISON: Mammogram 10/31/2019 and 10/01/2019 reviewed. FINDINGS: Craniocaudal and mediolateral oblique views are obtained. Marker clip is seen at the level where previous mammography demonstrates a nodule in the inferior and lateral aspect of the left breast. No evidence of hematoma. IMPRESSION: Marker clip in good position. MTDD
== END ==
LOC: M WHCPRO 11:43
PROVIDERS: ATTEND Surgery
DX: N60.22 Fibroadenosis of left breast (principal)

== ENCOUNTER 2019-12-07 23:08 | Emergency (ER) | payer BC ==
[~2019-12-07] VITALS: Ht 175.3 cm; Wt 104.5 kg
[~2019-12-07 23:08] MED LIST changes: -BUPR15TA PO; -CIPR-249 PO; -CYCL-707 PO; -HYDR12CA PO; -IBUP200C25 PO; -NALT50TA4 PO; -NITR-67 PO; -OXYB5TAB10 PO; -POTA10808 PO; -PYRI1TAB5 PO
[2019-12-07] MEDS ORDERED: PYRI1TAB5 PO (23:24)
[2019-12-07] MEDS ORDERED: NITR-67 PO (23:24)
[2019-12-07] MEDS ORDERED: ONDANSETRON 4MG/2ML VIAL IV ONE (23:45)
[2019-12-07] MEDS ORDERED: KETOROLAC 30 MG/ML 1ML VIAL IV ONE (23:45)
[2019-12-08 00:17] LABS: BASO % 0.3 % (0.0-1.0); EOS # 0.1 10^3/uL (0.0-0.5); EOS % 0.5 % (0.0-3.0); HEMATOCRIT 41.6 % (36.0-47.0); HEMOGLOBIN 13.9 g/dl (12.0-15.5); LYMPH # 1.2 10^3/uL (1.5-5.0); LYMPH % 10.4 % (24.0-44.0); MEAN CORPUSCULAR HEMOGLOBIN 29.7 pg (27.0-33.0); MEAN CORPUSCULAR HGB CONC 33.4 g/dl (32.0-36.5); MEAN CORPUSCULAR VOLUME 88.9 fl (80.0-96.0); MONO # 0.5 10^3/uL (0.0-0.8); MONO % 4.1 % (0.0-5.0); NEUTROPHILS # 9.7 10^3/uL (1.5-8.5); NEUTROPHILS % 84.3 % (36.0-66.0); PLATELET COUNT, AUTOMATED 246 10^3/uL (150-450); RED BLOOD COUNT 4.68 10^6/uL (4.00-5.40); WHITE BLOOD COUNT 11.5 10^3/uL (4.0-10.0)
[2019-12-08 00:24] LABS: ALBUMIN 4.1 GM/DL (3.2-5.2); ALT/SGPT 25 U/L (12-78); BILIRUBIN,DIRECT 0.2 MG/DL (0.0-0.2); BILIRUBIN,TOTAL 0.5 MG/DL (0.2-1.0); BLOOD UREA NITROGEN 15 MG/DL (7-18); CARBON DIOXIDE LEVEL 22 MEQ/L (21-32); CHLORIDE LEVEL 110 MEQ/L (98-107); CREATININE FOR GFR 0.86 MG/DL (0.55-1.30); GLOMERULAR FILTRATION RATE > 60.0 (>58); GLUCOSE, FASTING 112 MG/DL (70-100); LIPASE 57 U/L (73-393); POTASSIUM SERUM 3.9 MEQ/L (3.5-5.1); SODIUM LEVEL 138 MEQ/L (136-145); TOTAL PROTEIN 7.6 GM/DL (6.4-8.2)
--- NOTE | 2019-12-08 00:40 | REPVR ---
PROCEDURE INFORMATION: Exam: CT Abdomen And Pelvis Without Contrast Exam date and time: 12/08/2019 11:59 AM Age: 44 years old Clinical indication: Abdominal pain; Colic; Additional info: R renal colic TECHNIQUE: Imaging protocol: Computed tomography of the abdomen and pelvis without contrast. Radiation optimization: All CT scans at this facility use at least one of these dose optimization techniques: automated exposure control; mA and/or kV adjustment per patient size (includes targeted exams where dose is matched to clinical indication); or iterative reconstruction. COMPARISON: CT ABD PELVIS W/O CONTRAST 11/11/2019 10:15 AM FINDINGS: Liver: Normal. No mass. Gallbladder and bile ducts: Status post cholecystectomy. Pancreas: Normal. No ductal dilation. Spleen: Normal. No splenomegaly. Adrenals: Normal. No mass. Kidneys and ureters: Nonobstructing bilateral renal calculi. Right perinephric stranding with prominent right hydronephrosis and moderate hydroureter with some periureteral edema which extends to the right UVJ. There is a calculus medial and caudal to the right UVJ and near midline consistent with recently passed calculus measuring 3 x 3 x 5 mm. Stomach and bowel: There has been gastric bypass with collapse of the bypassed stomach. Left mid abdominal Lencho-en-Y. Small epigastric ventral wall hernias which are shallow and contain some bowel with no obstruction or strangulation. Appendix: There are no changes of appendicitis. A normal appendix is not seen. Intraperitoneal space: Unremarkable. No free air. No significant fluid collection. Vasculature: Unremarkable. No abdominal aortic aneurysm. Lymph nodes: Unremarkable. No enlarged lymph nodes. Urinary bladder: Unremarkable as visualized. Reproductive: Unremarkable as visualized. Bones/joints: Unremarkable. No acute fracture. Soft tissues: Unremarkable. IMPRESSION: 1. Evidence of a recently passed calculus which is layering in the bladder measuring 3 x 3 x 5 mm with residual obstructive uropathy of the right upper tract. 2. Status post cholecystectomy and gastric bypass. 3. Nonobstructing bilateral renal calculi. 4. Small epigastric ventral wall hernias. Electronically signed by: Anil Lira On 12/08/2019 00:40:09 AM
[2019-12-08] MEDS ORDERED: ONDA4TAB6 PO (01:13)
[2019-12-08] MEDS ORDERED: CIPR-249 PO (01:13)
[2019-12-08 01:27] VITALS: BP 142/81
[2019-12-08] MEDS ORDERED: CIPROFLOXACIN 500MG TABLET PO ONE (01:30)
[2019-12-08] MEDS ORDERED: NORCO 5/325MG TABLET (BULK FOR ED) PO ONE (01:30)
[2019-12-08] MEDS ORDERED: ONDANSETRON 4 MG ORAL DISINTEGRATING TAB PO ONE (01:30)
[2019-12-25] MEDS ORDERED: BUPR15TA PO (15:24)
[2019-12-25] MEDS ORDERED: POTA10808 PO (15:24)
[2019-12-25] MEDS ORDERED: NALT50TA4 PO (15:24)
[2019-12-25] MEDS ORDERED: CYCL-707 PO (15:24)
[2019-12-25] MEDS ORDERED: HYDR-3713 PO (15:24)
[2019-12-25] MEDS ORDERED: HYDR12CA PO (15:24)
[2019-12-25] MEDS ORDERED: IBUP200C25 PO (15:37)
== END 2019-12-08 01:36 | disposition home or self-care (01) ==
LOC: M ED 23:08
DX: N21.0 Calculus in bladder (principal); R11.2 Nausea with vomiting, unspecified; N39.0 Urinary tract infection, site not specified; R10.9 Unspecified abdominal pain; N20.0 Calculus of kidney; K43.9 Ventral hernia without obstruction or gangrene; I10 Essential (primary) hypertension; Z87.442 Personal history of urinary calculi; Z98.84 Bariatric surgery status; F17.200 Nicotine dependence, unspecified, uncomplicated; Z79.899 Other long term (current) drug therapy; Z88.0 Allergy status to penicillin; Z91.040 Latex allergy status
CPT/HCPCS: 74176; 80048; 80076; 81001; 83690; 85025; 87086; 96374; 96375; 99284; J1885; J2405; Q0162

== ENCOUNTER → 2019-12-27 | Outpatient (CLI) | payer BC ==
[~2019-12-27] MED LIST changes: +BUPR15TA PO; +CIPR-249 PO; +CYCL-707 PO; +HYDR12CA PO; +IBUP200C25 PO; +NALT50TA4 PO; +NITR-67 PO; +OXYB5TAB10 PO; +POTA10808 PO; +PYRI1TAB5 PO
[2019-12-27 11:38] LABS: HEMATOCRIT 40.8 % (36.0-47.0); HEMOGLOBIN 13.8 g/dl (12.0-15.5); MEAN CORPUSCULAR HEMOGLOBIN 30.5 pg (27.0-33.0); MEAN CORPUSCULAR HGB CONC 33.8 g/dl (32.0-36.5); MEAN CORPUSCULAR VOLUME 90.1 fl (80.0-96.0); PLATELET COUNT, AUTOMATED 249 10^3/uL (150-450); RED BLOOD COUNT 4.53 10^6/uL (4.00-5.40)
[2019-12-27 12:05] LABS: BLOOD UREA NITROGEN 8 MG/DL (7-18); CALCIUM LEVEL 8.8 MG/DL (8.5-10.1); CARBON DIOXIDE LEVEL 25 MEQ/L (21-32); CHLORIDE LEVEL 106 MEQ/L (98-107); CREATININE FOR GFR 0.66 MG/DL (0.55-1.30); GLOMERULAR FILTRATION RATE > 60.0 (>58); GLUCOSE, FASTING 90 MG/DL (70-100); POTASSIUM SERUM 4.1 MEQ/L (3.5-5.1); SODIUM LEVEL 138 MEQ/L (136-145)
== END ==
LOC: M LAB 10:42
PROVIDERS: ATTEND Urology
DX: Z01.818 Encounter for other preprocedural examination (principal); N20.0 Calculus of kidney

== ENCOUNTER → 2019-12-29 | Outpatient (CLI) | payer BC | LOC: M LABSMTC 10:35 | PROVIDERS: ATTEND Anesthesiology | DX: Z01.812 Encounter for preprocedural laboratory examination (principal); Z20.828 Contact with and (suspected) exposure to other viral communicable diseases | CPT/HCPCS: C9803; U0003 ==

== ENCOUNTER 2020-01-03 08:34 | Day surgery (SDC) | payer BC ==
[~2020-01-03] VITALS: Ht 175.3 cm; Wt 102.1 kg
[~2020-01-03 08:34] MED LIST changes: +LIDOCAINE 1% MDV 20ML VIAL SQ PRN; +LR 1,000 ML IV ONE; -OXYB5TAB10 PO
[2020-01-03] MEDS ORDERED: OXYB5TAB10 PO (09:21)
[2020-01-03] MEDS ORDERED: OXYC1TAB23 PO (09:21)
[2020-01-03] MEDS ORDERED: LevoFLOXacin IV 500 MG in IV 1 EA IV ONE (09:30)
[2020-01-03] MEDS ORDERED: fentaNYL 100 MCG/2 ML INJECTION (J3010) As Ordered ONE ×2 (10:20→12:48)
[2020-01-03] MEDS ORDERED: propofoL 200 MG/20 ML VIAL As Ordered ONE (10:20)
[2020-01-03] MEDS ORDERED: ONDANSETRON 4MG/2ML VIAL As Ordered ONE (10:20)
[2020-01-03] MEDS ORDERED: dexameTHASONE 4 MG/ML 1ML VIAL (J1100 PER 1MG) As Ordered ONE (10:20)
[2020-01-03] MEDS ORDERED: MIDAZOLAM INJ 2MG/2ML VIAL (J2250 PER 1MG) As Ordered ONE (10:20)
[2020-01-03] MEDS ORDERED: LIDOCAINE 2% 100MG/5ML SDV (FOR ANES.) As Ordered ONE (10:20)
[2020-01-03] MEDS ORDERED: SCOPOLAMINE 1MG TRANSDERMAL PATCH As Ordered ONE (11:02)
[2020-01-03] MEDS ORDERED: CONRAY-60 60% 50ML VIAL (Q9961) As Ordered ONE (11:04)
[2020-01-03] MEDS ORDERED: SCOPOLAMINE 1MG TRANSDERMAL PATCH TOP ONE (11:15)
[2020-01-03] MEDS ORDERED: METOCLOPRAMIDE INJ 10MG/2ML VIAL (J2765 PER 1) As Ordered ONE (11:58)
[2020-01-03] MEDS ORDERED: ACETAMINOPHEN 1000MG 100ML IV BTL (OFIRMEV) (J0131 PER 10MG) As Ordered ONE (11:58)
[2020-01-03] MEDS: fentaNYL 100 MCG/2 ML INJECTION (J3010) IV PRN ×4 (12:45→13:10)
[2020-01-03] MEDS: oxyCODONE 5MG TAB PO PRN ×2 (12:45→13:20)
[2020-01-03] MEDS ORDERED: oxyCODONE 5MG TAB As Ordered ONE (12:48)
[2020-01-03] MEDS ORDERED: oxyBUTYnin 5 MG TAB PO PRN (13:00)
[2020-01-03] MEDS ORDERED: PERCOCET 5MG/325MG TAB PO PRN (13:00)
[2020-01-03] MEDS ORDERED: LR 1,000 ML IV SCH (13:00)
[2020-01-03] MEDS ORDERED: ONDANSETRON 4MG/2ML VIAL IV PRN (13:00)
[2020-01-03 14:30] VITALS: BP 139/74
--- NOTE | 2020-01-03 17:51 | REP ---
INDICATION: CYSTOSCOPY. COMPARISON: 07/03/2019. TECHNIQUE: Three C-arm views abdomen are performed. FINDINGS: Bilateral ureteral stents are placed. The proximal ends are in renal pelves bilaterally and the distal ends are in the region of the urinary bladder. IMPRESSION: 23 seconds fluoroscopy time utilized. <Electronically signed by Bradley York > 01/03/20 [id number]
--- NOTE | 2020-01-07 09:43 | RO ---
DATE OF OPERATION: 01/03/2020 PREOPERATIVE DIAGNOSIS: Kidney stones. POSTOPERATIVE DIAGNOSIS: Kidney stones. PROCEDURES: 1. Cystoscopy. 2. Bilateral ureteroscopy with basket extraction of stones. 3. Bilateral retrograde pyelograms with intraoperative interpretation of images. 4. Bilateral ureteral stent placement. SURGEON: Valentín Recinos MD ANIMAL CARE TECHNICIAN: None. ANESTHESIA: General. OPERATIVE INDICATIONS: This is a 44-year-old female with history of nephrocalcinosis and kidney stones. She was found on recent CT scan to have what appeared to be several small stones in both kidneys. Given her concern that she would continue passing these stones she wanted to be brought to the operating room today to clear out all the stones. DESCRIPTION OF PROCEDURE: The patient was brought to the operating room and general anesthesia was induced. Prophylactic antibiotics were infused. She was placed in the dorsal lithotomy position, and prepped and draped in usual sterile fashion. A rigid cystoscope was inserted into the urethral meatus and advanced into the bladder. A guidewire was advanced up the right collecting system. A ureteral access sheath was advanced up the right collecting system. I went over the access sheath with a flexible ureteroscope and examined the right kidney thoroughly. In the upper pole calyx she had an approximately 3-4 mm stone attached to one of the renal papilla. The stone was removed with the basket. The rest of her kidney was thoroughly examined and in the lower pole calyx she had another approximately 3-4 mm size stone attached to a papilla. I was able to grab a piece of the stone and was able to remove a piece of the stone using the basket. Due to the location I was not able to grab the remainder of the stone. I was not able to deflect the ureteroscope into a position to actually grab the rest of the stone. Throughout the rest of the kidney all the renal papillae were notable for embedded calcifications consistent with nephrocalcinosis. At this point retrograde pyelogram was performed and notable for mild to moderate right hydronephrosis but no extravasation. I withdrew the ureteroscope along with access sheath and no additional stones were seen inside the ureter. I then utilized the guidewire to advance a 6-Mauritanian x 22-32 cm JJ ureteral stent up the right collecting system. The wire was then removed and there were adequate curls of stent in left renal pelvis and in the bladder. At this point a guidewire was advanced up the left collecting system. I advanced the ureteral access sheath up the left collecting system. I went up the access sheath with a flexible ureteroscope and examined the left kidney thoroughly. Only very tiny stone debris was seen floating inside the kidney. There was also nephrocalcinosis but no stones that needed to be removed. A retrograde pyelogram was performed and was notable for mild to moderate left hydronephrosis with no extravasation. I then withdrew the ureteroscope along with access sheath and no additional stones were seen inside the ureter. I then utilized a guidewire to advance a 6-Mauritanian x 22-32 cm JJ ureteral stent up the left collecting system. The wire was removed and there were adequate curls of the stent in left renal pelvis and in the bladder. The bladder was emptied of all fluids and this marked the conclusion of the procedure. The patient was taken out of the dorsal lithotomy position, awakened from anesthesia and transported to recovery room in stable condition. ESTIMATED BLOOD LOSS: 5 mL. COMPLICATIONS: None. SPECIMENS: Kidney stones. PLAN: The patient will follow up in urology clinic in a few weeks for stent removal. BETY
== END 2020-01-03 14:30 | disposition home or self-care (01) ==
LOC: M SDC 08:34
PROVIDERS: ATTEND Urology
DX: N20.0 Calculus of kidney (principal); D64.9 Anemia, unspecified; F41.9 Anxiety disorder, unspecified; Z98.84 Bariatric surgery status; Z88.0 Allergy status to penicillin; Z91.040 Latex allergy status; G43.909 Migraine, unspecified, not intractable, without status migrainosus; Z79.899 Other long term (current) drug therapy
CPT/HCPCS: 52332; 74420; 82365; 88300; C1769; C1894; C2617; J0131; J1100; J1956; J2250; J2405; J2765; J3010; Q9961

== ENCOUNTER → 2020-04-28 | Outpatient (CLI) | payer BC ==
[~2020-04-28] MED LIST changes: +CYAN500T14 PO; -CYAN500T8 PO; -LIDOCAINE 1% MDV 20ML VIAL SQ PRN; -LR 1,000 ML IV ONE; +OXYB5TAB10 PO
--- NOTE | 2020-04-28 10:27 | REP ---
INDICATION: R92.8 ABN MAMMO LT BREAST,S/P BENIGN BX. COMPARISON: 10/01/2019 as well as other prior exams. TECHNIQUE: MLO and CC views left breast performed with tomosynthesis. Patient had negative ultrasound-guided biopsy 11/13/2019. This is a six-month follow-up exam. Ultrasound of the left breast is also performed. FINDINGS: Scattered fibroglandular elements in the left breast are stable. The biopsy clip is again seen in the inferolateral left breast. No new mass or clustered microcalcifications are seen. The Volpara volumetric breast density pattern is A. Real-time sonographic evaluation of left breast performed at the site of the biopsy. The HydroMARK clip is again noted. No nodule is seen. IMPRESSION: BIRADS/ACR category 2, benign. Stable mammogram status post benign biopsy left breast nodule. No new mass. No suspicious nodule at the biopsy site left breast 4 o'clock sonographically, the HydroMARK biopsy clip is again noted. This patient's Tyrer-Cuzick lifetime breast cancer risk assessment score is 12.7%. This mammogram was interpreted with the aid of an FDA-approved computer-aided detection system. The patient states she had a clinical breast exam in October 2019. The patient letter being requested is M1. RECOMMENDATION: Recommend follow-up bilateral mammogram September 2020. <Electronically signed by Bradley York > 04/28/20 [id number]
== END ==
LOC: M WHC 08:52
PROVIDERS: ATTEND Surgery
DX: R92.8 Other abnormal and inconclusive findings on diagnostic imaging of breast (principal); Z09 Encounter for follow-up examination after completed treatment for conditions other than malignant neoplasm
CPT/HCPCS: 76642; 77065; G0279

== ENCOUNTER → 2020-06-08 | Outpatient (CLI) | payer BC ==
[2020-06-08 14:20] LABS: BASO % 0.5 % (0.0-1.0); EOS # 0.1 10^3/uL (0.0-0.5); EOS % 2.4 % (0.0-3.0); HEMATOCRIT 42.4 % (36.0-47.0); HEMOGLOBIN 14.2 g/dl (12.0-15.5); LYMPH # 1.7 10^3/uL (1.5-5.0); LYMPH % 28.1 % (24.0-44.0); MEAN CORPUSCULAR HEMOGLOBIN 31.1 pg (27.0-33.0); MEAN CORPUSCULAR HGB CONC 33.5 g/dl (32.0-36.5); MONO # 0.4 10^3/uL (0.0-0.8); MONO % 6.2 % (2.0-8.0); NEUTROPHILS # 3.7 10^3/uL (1.5-8.5); NEUTROPHILS % 62.3 % (36.0-66.0); PLATELET COUNT, AUTOMATED 217 10^3/uL (150-450); RED BLOOD COUNT 4.56 10^6/uL (4.00-5.40)
[2020-06-08 14:56] LABS: ALT/SGPT 20 U/L (12-78); BLOOD UREA NITROGEN 9 MG/DL (7-18); CALCIUM LEVEL 9.3 MG/DL (8.5-10.1); CARBON DIOXIDE LEVEL 26 MEQ/L (21-32); CHLORIDE LEVEL 105 MEQ/L (98-107); CREATININE FOR GFR 0.55 MG/DL (0.55-1.30); GLOMERULAR FILTRATION RATE > 60.0 (>58); GLUCOSE, FASTING 92 MG/DL (70-100); POTASSIUM SERUM 3.9 MEQ/L (3.5-5.1); SODIUM LEVEL 136 MEQ/L (136-145)
[2020-06-08 14:57] LABS: BILIRUBIN,TOTAL 0.5 MG/DL (0.2-1.0); CHOLESTEROL LEVEL 193 MG/DL (<200); CHOLESTEROL RISK RATIO 2.924 (<5); FREE T4 0.94 NG/DL (0.76-1.46); HDL CHOLESTEROL 66 MG/DL (>40); LDL CHOLESTEROL 106 MG/DL (<100); NON-HDL-C 127 MG/DL; TOTAL PROTEIN 7.1 GM/DL (6.4-8.2); TRIGLYCERIDES LEVEL 107 MG/DL (<150)
== END ==
LOC: M PLALAB 09:38
PROVIDERS: ATTEND Physician Assistant Medical
DX: R53.83 Other fatigue (principal); I10 Essential (primary) hypertension; E78.2 Mixed hyperlipidemia

== ENCOUNTER → 2020-07-10 | Outpatient (CLI) | payer BC ==
--- NOTE | 2020-07-10 10:22 | REPPI ---
INDICATION: N20.0 KIDNEY STONE COMPARISON: None. TECHNIQUE: Supine view of the abdomen and pelvis. FINDINGS: Evaluation of the urinary tract system is significantly limited due to overlying bowel gas. Small intrarenal calculi are suspected. IMPRESSION: Limited examination. Small intrarenal calculi are suspected. <Electronically signed by Isaac Jackson > 07/10/20 [id number]
== END ==
LOC: M PLAIMG 09:46
PROVIDERS: ATTEND Urology
DX: N20.0 Calculus of kidney (principal)

== ENCOUNTER → 2020-07-30 | Outpatient (REF) | payer BC | LOC: M LAB REF 16:44 | PROVIDERS: ATTEND Internal Medicine Nephrology | DX: N20.0 Calculus of kidney (principal) ==

== ENCOUNTER → 2020-10-06 | Outpatient (CLI) | payer BC | LOC: M WHC 09:27 | PROVIDERS: ATTEND Nurse Practitioner Women's Health | DX: Z12.31 Encounter for screening mammogram for malignant neoplasm of breast (principal); Z53.9 Procedure and treatment not carried out, unspecified reason ==

== ENCOUNTER → 2020-10-26 | Outpatient (CLI) | payer BC ==
--- NOTE | 2020-10-26 09:23 | REPMRS ---
Patient History The patient states she had a clinical breast exam in September 2020. No known family history of cancer. Benign US guided breast biopsy. of the left breast, November 13, 2019. No Hormone Replacement Therapy Patient states no breast complaints today. Patient has signed MRS History Sheet. Digital Woman Screen Mammo: October 26, 2020 - Exam #: [id number] Bilateral CC and MLO view(s) were taken. Technologist: Nabila Seals, Technologist Prior study comparison: April 28, 2020, left breast diagnostic unilateral mammo performed at [facility]. November 13, 2019, left breast diagnostic unilateral mammo performed at [facility]. October 01, 2019, bilateral digital woman screen mammo performed at [facility]. FINDINGS: The breast tissue is almost entirely fat. There is a needle biopsy marker clip noted in the left breast. The Volpara volumetric breast density category is: A. There has been no change in the appearance of the mammogram from the prior studies. There is no interval development of dominant mass, architectural distortion, or grouped microcalcification typical of malignancy. 3-D tomosynthesis shows no additional findings. Assessment: BI-RADS/ACR category 1 mammogram. Negative Mammogram. Recommendation Routine screening mammogram of both breasts in 1 year (for women over age 40). This patient's [facility] Lifetime Breast Cancer RIsk is estimated at 12.7 %. This mammogram was interpreted with the aid of an FDA-approved computer-aided dectection system. Electronically Signed By: Dar Dillon MD 10/26/20 [id number]
== END ==
LOC: M WHC 08:33
PROVIDERS: ATTEND Nurse Practitioner Women's Health
DX: Z12.31 Encounter for screening mammogram for malignant neoplasm of breast (principal)

== ENCOUNTER → 2021-01-04 | Outpatient (CLI) | payer BC ==
--- NOTE | 2021-01-04 10:36 | REP ---
INDICATION: CALCULUS OF KIDNEY. COMPARISON: 06/30/2020 FINDINGS: KUB shows the intestinal gas pattern to be nonspecific. The organ silhouettes insofar as delineated are unremarkable. There is no evidence of free intraperitoneal air. Once again, bowel content obscures the nephric silhouettes. Vague calcifications appear to be superimposed over the right renal inferior pole region probably unchanged from the prior exam. There is a large amount of content in the right colon and proximal transverse colon. No definite new abnormal calcifications are identified. There is no change in the osseous structures. IMPRESSION: As above. <Electronically signed by Greg Yepez > 01/04/21 1036
== END ==
LOC: M PLAIMG 08:59
PROVIDERS: ATTEND Urology
DX: N20.0 Calculus of kidney (principal)

== ENCOUNTER → 2021-10-11 | Outpatient (CLI) | payer BC ==
[~2021-10-11] MED LIST changes: -D31000TA2 PO; -PHEN30CA2 PO; +PHEN30CA21 PO; +VITA100093 PO; -ZONI100C17 PO; +ZONI100C67 PO
== END ==
LOC: M PLAIMG 15:09
PROVIDERS: ATTEND Urology
DX: N20.0 Calculus of kidney (principal)

== ENCOUNTER → 2021-12-24 | Outpatient (CLI) | payer BC | LOC: M PLARAD 08:34 → M PLAIMG 08:34 | PROVIDERS: ATTEND Physician Assistant | DX: M25.551 Pain in right hip (principal); M16.0 Bilateral primary osteoarthritis of hip ==

== ENCOUNTER → 2022-02-15 | Outpatient (REF) | payer BC | LOC: M LAB REF 17:12 | PROVIDERS: ATTEND Internal Medicine Nephrology | DX: N20.0 Calculus of kidney (principal) ==

== ENCOUNTER → 2022-12-02 | Outpatient (CLI) | payer BC | LOC: M PLAIMG 15:26 | PROVIDERS: ATTEND Urology | DX: N20.0 Calculus of kidney (principal) ==

== ENCOUNTER → 2022-12-08 | Outpatient (REF) | payer BC ==
[~2022-12-08] MED LIST changes: -OXYB5TAB10 PO; +OXYB5TAB11 PO
== END ==
LOC: M SMT 17:19
PROVIDERS: ATTEND Urology
DX: N20.0 Calculus of kidney (principal)

== ENCOUNTER → 2022-12-23 | Outpatient (CLI) | payer BC | LOC: M PLAIMG 09:32 | PROVIDERS: ATTEND Urology | DX: N20.0 Calculus of kidney (principal); Z98.84 Bariatric surgery status; K76.0 Fatty (change of) liver, not elsewhere classified; N13.30 Unspecified hydronephrosis ==

== ENCOUNTER → 2022-12-27 | Outpatient (CLI) | payer BC ==
[~2022-12-27] MED LIST changes: +ALLO100T PO; +SAXE1INJ; +SODI650T PO
[2022-12-27 16:28] LABS: APPEARANCE, URINE CLEAR (CLEAR); BACTERIA, URINE AUTO 1+ (NEGATIVE); BILIRUBIN, URINE AUTO NEGATIVE (NEGATIVE); BLOOD, URINE BLOOD NEGATIVE (NEGATIVE); COLOR, URINE YELLOW (YELLOW); GLUCOSE, URINE (UA) AUTO NEGATIVE (NEGATIVE); KETONE, URINE AUTO NEGATIVE (NEGATIVE); LEUKOCYTE ESTERASE, URINE AUTO 1+ (NEGATIVE); MUCUS, URINE SMALL (NEGATIVE); NITRITE, URINE AUTO NEGATIVE (NEGATIVE); PROTEIN, URINE AUTO NEGATIVE (NEGATIVE); RBC, URINE AUTO 1 /HPF (0-3); SPECIFIC GRAVITY URINE AUTO 1.011 (1.002-1.035); SQUAMOUS EPITHELIAL CELL UR AU 2 /HPF (0-6); UROBILINOGEN, URINE AUTO 0.2 mg/dL (0.0-2.0); WBC, URINE AUTO 5 /HPF (0-3)
[2022-12-27 16:39] LABS: HEMATOCRIT 41.3 % (36.0-47.0); HEMOGLOBIN 14.3 g/dl (12.0-15.5); MEAN CORPUSCULAR HEMOGLOBIN 32.2 pg (27.0-33.0); MEAN CORPUSCULAR HGB CONC 34.6 g/dl (32.0-36.5); PLATELET COUNT, AUTOMATED 233 10^3/uL (150-450); RED BLOOD COUNT 4.44 10^6/uL (4.00-5.40); WHITE BLOOD COUNT 6.5 10^3/uL (4.0-10.0)
[2022-12-27 16:55] LABS: BLOOD UREA NITROGEN 9 MG/DL (9-23); CALCIUM LEVEL 8.9 MG/DL (8.5-10.1); CARBON DIOXIDE LEVEL 24 MMOL/L (20-31); CHLORIDE LEVEL 104 MMOL/L (98-107); CREATININE FOR GFR 0.59 MG/DL (0.55-1.30); GLOMERULAR FILTRATION RATE > 60.0 (>58); GLUCOSE, FASTING 90 MG/DL (60-100); SODIUM LEVEL 137 MMOL/L (136-145)
== END ==
LOC: M PLALAB 14:40
PROVIDERS: ATTEND Urology
DX: Z01.818 Encounter for other preprocedural examination (principal); N20.0 Calculus of kidney

== ENCOUNTER 2022-12-30 10:28 | Day surgery (SDC) | payer BC ==
[~2022-12-30] VITALS: Ht 175.3 cm; Wt 107.4 kg
[~2022-12-30 10:28] MED LIST changes: +UNRESOLVED CLARIFICATION ENTRY XX SCH
[2022-12-30] MEDS ORDERED: LR 1,000 ML IV SCH ×2 (10:45→16:40)
[2022-12-30] MEDS ORDERED: propofoL 200 MG/20 ML VIAL As Ordered ONE (12:44)
[2022-12-30] MEDS ORDERED: fentaNYL 100 MCG/2 ML INJECTION As Ordered ONE ×3 (12:44→16:03)
[2022-12-30] MEDS ORDERED: MIDAZOLAM INJ 2MG/2ML VIAL As Ordered ONE (12:44)
[2022-12-30] MEDS ORDERED: ONDANSETRON 4MG 2ML VIAL As Ordered ONE (12:44)
[2022-12-30] MEDS ORDERED: LIDOCAINE 2% 100MG/5ML SDV (FOR ANES.) As Ordered ONE (12:44)
[2022-12-30] MEDS ORDERED: SCOPOLAMINE 1MG TRANSDERMAL PATCH TOP ONE (13:00)
[2022-12-30] MEDS ORDERED: ISOVUE-300 61% 100ML VIAL As Ordered ONE (13:32)
[2022-12-30] MEDS ORDERED: LevoFLOXacin IV 500 MG in IV 1 EA IV ONE (13:35)
[2022-12-30] MEDS ORDERED: ACETAMINOPHEN 1000MG 100ML IV BAG As Ordered ONE (14:34)
[2022-12-30] MEDS ORDERED: dexmedeTOMIDine (4MCG/ML)200MCG/50ML BTL (PRECEDEX) As Ordered ONE (15:18)
[2022-12-30] MEDS ORDERED: SEVOFLURANE INHAL SOLN 250 ML BTL As Ordered ONE (15:23)
[2022-12-30] MEDS ORDERED: oxyCODONE 5MG TAB PO PRN (16:40)
[2022-12-30] MEDS ORDERED: fentaNYL 100 MCG/2 ML INJECTION IV PRN (16:40)
[2022-12-30] MEDS ORDERED: METOCLOPRAMIDE INJ 10MG/2ML VIAL IV PRN (16:40)
[2022-12-30] MEDS ORDERED: ONDANSETRON 4MG 2ML VIAL IV PRN (16:40)
[2022-12-30] MEDS ORDERED: HYDROMORPHONE HCL 0.5 MG/ 0.5 ML SYRINGE IV PRN (16:40)
[2022-12-30] MEDS ORDERED: OXYB10TA23 PO (16:55)
[2022-12-30] MEDS ORDERED: OXYC1TAB23 PO (16:55)
[2022-12-30] MEDS ORDERED: FLOM0.4C39 PO (16:55)
[2022-12-30 18:50] VITALS: BP 140/69; TEMP 97.9; O2SAT 97
[2023-01-09 01:09] LABS: CA Hydro Phos 50 % (.); Ca Ox Monohydrate 10 % (.); Size 8x6 mm (.)
== END 2022-12-30 19:19 | disposition home or self-care (01) ==
LOC: M SDC 10:28
PROVIDERS: ATTEND Urology
DX: N20.2 Calculus of kidney with calculus of ureter (principal); N13.0 Hydronephrosis with ureteropelvic junction obstruction; D64.9 Anemia, unspecified; G43.909 Migraine, unspecified, not intractable, without status migrainosus; F41.9 Anxiety disorder, unspecified; Z88.0 Allergy status to penicillin; Z91.040 Latex allergy status; Z79.899 Other long term (current) drug therapy
CPT/HCPCS: 52356; 74420; 82365; C1769; C1894; C2617; J0131; J1100; J1956; J2250; J2405; J2765; J3010; Q9967

== ENCOUNTER → 2023-02-14 | Outpatient (REF) | payer BC ==
[~2023-02-14] MED LIST changes: +OXYB10TA23 PO; -UNRESOLVED CLARIFICATION ENTRY XX SCH
[2023-02-14 17:49] LABS: AMORPHOUS SEDIMENT SMALL (NEGATIVE); APPEARANCE, URINE HAZY (CLEAR); BACTERIA, URINE AUTO NEGATIVE (NEGATIVE); BILIRUBIN, URINE AUTO NEGATIVE (NEGATIVE); BLOOD, URINE BLOOD NEGATIVE (NEGATIVE); COLOR, URINE YELLOW (YELLOW); GLUCOSE, URINE (UA) AUTO NEGATIVE (NEGATIVE); KETONE, URINE AUTO NEGATIVE (NEGATIVE); LEUKOCYTE ESTERASE, URINE AUTO TRACE (NEGATIVE); MUCUS, URINE SMALL (NEGATIVE); NITRITE, URINE AUTO NEGATIVE (NEGATIVE); PROTEIN, URINE AUTO NEGATIVE (NEGATIVE); RBC, URINE AUTO 0 /HPF (0-3); SPECIFIC GRAVITY URINE AUTO 1.013 (1.002-1.035); SQUAMOUS EPITHELIAL CELL UR AU 3 /HPF (0-6); WBC, URINE AUTO 3 /HPF (0-3)
== END ==
LOC: M SMT 16:58
PROVIDERS: ATTEND Urology
DX: N39.0 Urinary tract infection, site not specified (principal)

== ENCOUNTER → 2023-03-21 | Outpatient (REF) | payer BC | LOC: M LAB REF 17:45 | PROVIDERS: ATTEND Internal Medicine Nephrology | DX: N20.0 Calculus of kidney (principal) ==

== ENCOUNTER → 2023-07-07 | Outpatient (CLI) | payer BC ==
[~2023-07-07] MED LIST changes: -OXYB5TAB11 PO; +OXYB5TAB14 PO
== END ==
LOC: M PLAIMG 15:35
PROVIDERS: ATTEND Urology
DX: N20.0 Calculus of kidney (principal)

== ENCOUNTER → 2023-10-10 | Outpatient (REF) | payer BC, MEDICAID ==
[~2023-10-10] MED LIST changes: +ONDA-282 PO; -ONDA4TAB6 PO
[2023-10-10 17:23] LABS: APPEARANCE, URINE CLOUDY (CLEAR); BACTERIA, URINE AUTO NEGATIVE (NEGATIVE); BILIRUBIN, URINE AUTO NEGATIVE (NEGATIVE); BLOOD, URINE BLOOD NEGATIVE (NEGATIVE); COLOR, URINE YELLOW (YELLOW); GLUCOSE, URINE (UA) AUTO NEGATIVE (NEGATIVE); KETONE, URINE AUTO NEGATIVE (NEGATIVE); LEUKOCYTE ESTERASE, URINE AUTO TRACE (NEGATIVE); NITRITE, URINE AUTO NEGATIVE (NEGATIVE); PROTEIN, URINE AUTO NEGATIVE (NEGATIVE); RBC, URINE AUTO 0 /HPF (0-3); SPECIFIC GRAVITY URINE AUTO 1.012 (1.002-1.035); SQUAMOUS EPITHELIAL CELL UR AU 2 /HPF (0-6); UROBILINOGEN, URINE AUTO 0.2 mg/dL (0.0-2.0); WBC, URINE AUTO 1 /HPF (0-3)
== END ==
LOC: M LAB REF 16:23
PROVIDERS: ATTEND Physician Assistant Medical
DX: N39.0 Urinary tract infection, site not specified (principal)

== ENCOUNTER → 2023-11-07 | Outpatient (REF) | payer BC, MEDICAID, OTHER | LOC: M LAB REF 17:20 | PROVIDERS: ATTEND Internal Medicine Nephrology | DX: N39.0 Urinary tract infection, site not specified (principal) ==

== ENCOUNTER → 2024-01-02 | Outpatient (CLI) | payer BC, OTHER ==
[~2024-01-02] MED LIST changes: +E-Z-GAS II EFFERVESCENT PACKET (SODIUM BICARB./CITRIC ACID/SIMETHICONE) As Ordered ONE; +E-Z-HD 98% w/w 340GM SUSP BTL As Ordered ONE; +E-Z-PAQUE 96% w/w SUSP 176GM BTL As Ordered ONE
[2024-01-02 12:01] LABS: BASO % 0.5 % (0.0-1.0); EOS # 0.2 10^3/uL (0.0-0.5); EOS % 3.3 % (0.0-3.0); HEMATOCRIT 38.9 % (36.0-47.0); HEMOGLOBIN 13.6 g/dl (12.0-15.5); LYMPH # 1.5 10^3/uL (1.5-5.0); MEAN CORPUSCULAR HEMOGLOBIN 32.8 pg (27.0-33.0); MEAN CORPUSCULAR VOLUME 93.7 fl (80.0-96.0); MONO # 0.4 10^3/uL (0.0-0.8); MONO % 5.6 % (2.0-8.0); NEUTROPHILS # 4.5 10^3/uL (1.5-8.5); NEUTROPHILS % 66.7 % (36.0-66.0); PLATELET COUNT, AUTOMATED 237 10^3/uL (150-450); RED BLOOD COUNT 4.15 10^6/uL (4.00-5.40); WHITE BLOOD COUNT 6.7 10^3/uL (4.0-10.0)
[2024-01-02 12:24] LABS: HEMOGLOBIN A1c 4.8 % (4.0-6.0)
[2024-01-02 12:27] LABS: IRON (FE) 114 UG/DL (50-170); PERCENT SATURATION 43.7 % (13.2-45.0); TOTAL IRON BINDING CAPACITY 261 UG/DL (250-425)
[2024-01-02 12:28] LABS: ALBUMIN 3.7 G/DL (3.2-5.2); ALKALINE PHOSPHATASE 78 U/L (35-104); ALT/SGPT 35 U/L (7.0-40); AST/SGOT 19 U/L (<34); BILIRUBIN,TOTAL 0.4 MG/DL (0.3-1.2); BLOOD UREA NITROGEN 9 MG/DL (9-23); CALCIUM LEVEL 9.4 MG/DL (8.5-10.1); CARBON DIOXIDE LEVEL 23 MMOL/L (20-31); CHLORIDE LEVEL 108 MMOL/L (98-107); CHOLESTEROL LEVEL 185 MG/DL (<200); CHOLESTEROL RISK RATIO 3.26 (<5); CREATININE FOR GFR 0.47 MG/DL (0.55-1.30); GLOMERULAR FILTRATION RATE > 60.0 (>58); GLUCOSE, FASTING 90 MG/DL (60-100); HDL CHOLESTEROL 56.7 MG/DL (>40); LDL CHOLESTEROL 101.1 MG/DL (<100); NON-HDL-C 128.3 MG/DL; SODIUM LEVEL 137 MMOL/L (136-145); TRIGLYCERIDES LEVEL 136 MG/DL (<150)
[2024-01-02 12:29] LABS: FOLATE 8.12 NG/ML (>5.4); TOTAL 25(OH) VITAMIN D 19.7 NG/ML (20.0-100.0); VITAMIN B12 LEVEL 661 PG/ML (211-911)
[2024-01-02 12:30] LABS: FERRITIN 1113.9 NG/ML (7.3-270.7); THYROID STIMULATING HORMONE 1.795 uIU/ML (0.55-4.78)
== END ==
LOC: M RAD 10:20
PROVIDERS: ATTEND Surgery
DX: R63.5 Abnormal weight gain (principal); Z98.84 Bariatric surgery status; N20.0 Calculus of kidney; K44.9 Diaphragmatic hernia without obstruction or gangrene

== ENCOUNTER → 2024-01-05 | Outpatient (CLI) | payer OTHER ==
[~2024-01-05] MED LIST changes: -E-Z-GAS II EFFERVESCENT PACKET (SODIUM BICARB./CITRIC ACID/SIMETHICONE) As Ordered ONE; -E-Z-HD 98% w/w 340GM SUSP BTL As Ordered ONE; -E-Z-PAQUE 96% w/w SUSP 176GM BTL As Ordered ONE
== END ==
LOC: M RAD 13:39
PROVIDERS: ATTEND Physician Assistant Medical
DX: M25.562 Pain in left knee (principal)

== ENCOUNTER → 2024-02-07 | Outpatient (REF) | payer OTHER ==
[~2024-02-07] MED LIST changes: -POTA10808 PO; +POTA10809 PO
[2024-02-07 18:24] LABS: PERCENT SATURATION 47.1 % (13.2-45.0)
[2024-02-07 18:27] LABS: FERRITIN 1581.3 NG/ML (7.3-270.7)
== END ==
LOC: M LAB REF 17:21
PROVIDERS: ATTEND Internal Medicine Nephrology
DX: D50.9 Iron deficiency anemia, unspecified (principal)

== ENCOUNTER → 2024-03-05 | Outpatient (CLI) | payer OTHER | LOC: M PLAIMG 15:20 | PROVIDERS: ATTEND Urology | DX: N20.0 Calculus of kidney (principal) ==

== ENCOUNTER → 2024-03-21 | Outpatient (CLI) | payer OTHER | LOC: M PLAIMG 10:58 | PROVIDERS: ATTEND Urology | DX: N20.0 Calculus of kidney (principal); K42.9 Umbilical hernia without obstruction or gangrene; K43.9 Ventral hernia without obstruction or gangrene ==

== ENCOUNTER → 2024-05-01 | Outpatient (REF) | payer OTHER | LOC: M LAB REF 14:31 | PROVIDERS: ATTEND Physician Assistant | DX: B34.9 Viral infection, unspecified (principal) ==

== ENCOUNTER → 2024-05-24 | Outpatient (REF) | payer OTHER | LOC: M LAB REF 16:35 | PROVIDERS: ATTEND Physician Assistant | DX: E66.9 Obesity, unspecified (principal) ==

== ENCOUNTER → 2024-05-31 | Outpatient (REF) | payer OTHER ==
[2024-05-31 15:01] LABS: APPEARANCE, URINE HAZY (CLEAR); BACTERIA, URINE AUTO 2+ (NEGATIVE); BILIRUBIN, URINE AUTO NEGATIVE (NEGATIVE); BLOOD, URINE BLOOD NEGATIVE (NEGATIVE); COLOR, URINE YELLOW (YELLOW); GLUCOSE, URINE (UA) AUTO NEGATIVE (NEGATIVE); KETONE, URINE AUTO NEGATIVE (NEGATIVE); LEUKOCYTE ESTERASE, URINE AUTO NEGATIVE (NEGATIVE); NITRITE, URINE AUTO NEGATIVE (NEGATIVE); PROTEIN, URINE AUTO NEGATIVE (NEGATIVE); RBC, URINE AUTO 4 /HPF (0-3); SPECIFIC GRAVITY URINE AUTO 1.011 (1.002-1.035); SQUAMOUS EPITHELIAL CELL UR AU 14 /HPF (0-6); WBC, URINE AUTO 4 /HPF (0-3)
== END ==
LOC: M LAB REF 14:24
PROVIDERS: ATTEND Physician Assistant
DX: N39.0 Urinary tract infection, site not specified (principal)

== ENCOUNTER → 2024-06-12 | Outpatient (REF) | payer OTHER ==
[2024-06-12 18:19] LABS: APPEARANCE, URINE HAZY (CLEAR); BACTERIA, URINE AUTO 1+ (NEGATIVE); BILIRUBIN, URINE AUTO NEGATIVE (NEGATIVE); BLOOD, URINE BLOOD 2+ (NEGATIVE); COLOR, URINE AMBER (YELLOW); GLUCOSE, URINE (UA) AUTO NEGATIVE (NEGATIVE); KETONE, URINE AUTO NEGATIVE (NEGATIVE); LEUKOCYTE ESTERASE, URINE AUTO 2+ (NEGATIVE); MUCUS, URINE SMALL (NEGATIVE); NITRITE, URINE AUTO POSITIVE (NEGATIVE); PROTEIN, URINE AUTO NEGATIVE (NEGATIVE); RBC, URINE AUTO 9 /HPF (0-3); SPECIFIC GRAVITY URINE AUTO 1.011 (1.002-1.035); SQUAMOUS EPITHELIAL CELL UR AU 8 /HPF (0-6); WBC, URINE AUTO 10 /HPF (0-3)
== END ==
LOC: M LAB REF 16:37
PROVIDERS: ATTEND Physician Assistant
DX: N39.0 Urinary tract infection, site not specified (principal)

== ENCOUNTER → 2024-06-17 | Outpatient (CLI) | payer OTHER | LOC: M WHC 11:11 | PROVIDERS: ATTEND Specialist | DX: Z12.31 Encounter for screening mammogram for malignant neoplasm of breast (principal); R92.323 Mammographic fibroglandular density, bilateral breasts ==

== ENCOUNTER → 2024-06-17 | Outpatient (REF) | payer OTHER ==
[2024-06-20 16:08] LABS: HPV APTIMA Not Detected (Not Detected)
== END ==
LOC: M SFHCWAGY 16:48
PROVIDERS: ATTEND Specialist
DX: Z01.419 Encounter for gynecological examination (general) (routine) without abnormal findings (principal); N39.0 Urinary tract infection, site not specified

== ENCOUNTER 2024-06-27 09:29 | Day surgery (SDC) | payer OTHER ==
[~2024-06-27] VITALS: Ht 175.3 cm; Wt 117.9 kg
[~2024-06-27 09:29] MED LIST changes: -FLOM0.4C39 PO; -PHEN-239 PO; +PHEN37.511 PO; +TAMS-18 PO
[2024-06-27 09:57] LABS: KETONE, URINE AUTO RFX NEGATIVE (NEGATIVE); MUCUS, URINE RFX SMALL (NEGATIVE); NITRITE, URINE AUTO RFX NEGATIVE (NEGATIVE); RBC, URINE AUTO RFX TNTC /HPF (0-3); SQUAM EPITHELIAL CELL UR AURFX 6 /HPF (0-6)
[2024-06-27 09:58] LABS: LEUKOCYTE ESTERASE UR AUTO RFX TRACE (NEGATIVE); WBC, URINE AUTO RFX 16 /HPF (0-3)
[2024-06-27 10:20] LABS: BASO % 0.4 % (0.0-1.0); EOS # 0.2 10^3/uL (0.0-0.5); EOS % 2.2 % (0.0-3.0); HEMATOCRIT 40.5 % (36.0-47.0); HEMOGLOBIN 14.1 g/dl (12.0-15.5); LYMPH # 1.3 10^3/uL (1.5-5.0); LYMPH % 13.9 % (24.0-44.0); MEAN CORPUSCULAR HEMOGLOBIN 32.4 pg (27.0-33.0); MEAN CORPUSCULAR HGB CONC 34.8 g/dl (32.0-36.5); MEAN CORPUSCULAR VOLUME 93.1 fl (80.0-96.0); MONO # 0.5 10^3/uL (0.0-0.8); MONO % 5.5 % (2.0-8.0); NEUTROPHILS # 6.9 10^3/uL (1.5-8.5); NEUTROPHILS % 77.3 % (36.0-66.0); PLATELET COUNT, AUTOMATED 219 10^3/uL (150-450); RED BLOOD COUNT 4.35 10^6/uL (4.00-5.40)
[2024-06-27] MEDS: ACETAMINOPHEN 500 MG TAB PO ONE (10:30)
[2024-06-27] MEDS: ONDANSETRON 4MG 2ML VIAL IV ONE (10:47)
[2024-06-27] MEDS: MORPHINE 4 MG/ML 1ML VIAL IV ONE (10:47)
[2024-06-27] MEDS: NS (Normal Saline) 0.9% 1,000 ML IV ONE (10:48)
[2024-06-27 10:51] LABS: LIPASE 25 U/L (12-53)
[2024-06-27 10:53] LABS: ALKALINE PHOSPHATASE 85 U/L (35-104); ALT/SGPT 81 U/L (7.0-40); AST/SGOT 68 U/L (<34); BILIRUBIN,DIRECT 0.1 MG/DL (<0.4); BILIRUBIN,TOTAL 0.5 MG/DL (0.3-1.2); BLOOD UREA NITROGEN 14 MG/DL (9-23); CARBON DIOXIDE LEVEL 21 MMOL/L (20-31); CHLORIDE LEVEL 108 MMOL/L (98-107); CREATININE FOR GFR 0.69 MG/DL (0.55-1.30); GLOMERULAR FILTRATION RATE > 90.0 (>58); GLUCOSE, FASTING 109 MG/DL (60-100); POTASSIUM SERUM 4.8 MMOL/L (3.5-5.1); SODIUM LEVEL 139 MMOL/L (136-145); TOTAL PROTEIN 7.1 G/DL (5.7-8.2)
[2024-06-27 10:57] LABS: HCG, SERUM QUANTITATIVE < 2.6 MIU/ML (<4.2)
[2024-06-27] MEDS: MORPHINE 4 MG/ML 1ML VIAL IV PRN (13:00)
[2024-06-27] MEDS ORDERED: HOME MED LIST COMPLETE! XX SCH (13:05)
[2024-06-27] MEDS ORDERED: ONDA-83 PO (13:05)
[2024-06-27] MEDS ORDERED: KETO-204 PO (13:05)
[2024-06-27] MEDS ORDERED: BUPR-766 PO (13:05)
[2024-06-27] MEDS ORDERED: propofoL 200 MG/20 ML VIAL As Ordered ONE (13:48)
[2024-06-27] MEDS ORDERED: LIDOCAINE 2% 100MG/5ML SDV (FOR ANES.) As Ordered ONE (13:48)
[2024-06-27] MEDS ORDERED: KETOROLAC 30 MG/ML 1ML VIAL As Ordered ONE (13:49)
[2024-06-27] MEDS ORDERED: ACETAMINOPHEN 1000MG/100ML IV BAG As Ordered ONE (13:49)
[2024-06-27] MEDS ORDERED: fentaNYL 100 MCG/2 ML INJECTION As Ordered ONE (13:49)
[2024-06-27] MEDS ORDERED: ONDANSETRON 4MG 2ML VIAL As Ordered ONE (13:49)
[2024-06-27] MEDS ORDERED: SCOPOLAMINE 1MG TRANSDERMAL PATCH As Ordered ONE (14:03)
[2024-06-27] MEDS ORDERED: SCOPOLAMINE 1MG TRANSDERMAL PATCH TOP ONE (14:05)
[2024-06-27] MEDS ORDERED: ROCURONIUM BROMIDE 50MG/5ML VIAL As Ordered ONE (14:35)
[2024-06-27] MEDS: ADV IV ONE (15:13)
[2024-06-27] MEDS: DEXTROSE 5% IV ONE (15:13)
[2024-06-27] MEDS: MINI IV ONE (15:13)
[2024-06-27] MEDS: CEFAZOLIN SOD IV ONE (15:13)
[2024-06-27] MEDS ORDERED: SUGAMMADEX SODIUM 500 MG/5 ML VIAL (BRIDION) As Ordered ONE (15:35)
[2024-06-27] MEDS: ceFAZolin SODIUM 3 GM VIAL As Ordered ONE (15:40)
[2024-06-27] MEDS ORDERED: PHENYLephrine 500MCG 5ML (100MCG/ML) SYRINGE As Ordered ONE (16:37)
[2024-06-27] MEDS: ISOVUE-300 61% 100ML VIAL As Ordered ONE (17:00)
[2024-06-27] MEDS ORDERED: LR 1,000 ML IV SCH (17:15)
[2024-06-27] MEDS ORDERED: fentaNYL 100 MCG/2 ML INJECTION IV PRN (17:15)
[2024-06-27] MEDS ORDERED: PERCOCET 5MG/325MG TAB PO PRN (17:55)
[2024-06-27] MEDS: ONDANSETRON 4MG 2ML VIAL IV PRN (17:59)
[2024-06-27] MEDS: oxyBUTYnin 5 MG TAB PO PRN (17:59)
[2024-06-27] MEDS: HYDROMORPHONE HCL 0.5 MG/ 0.5 ML SYRINGE IV PRN (18:07)
[2024-06-27] MEDS: oxyCODONE 5MG TAB PO PRN (18:29)
[2024-06-27 19:45] VITALS: BP 150/74; TEMP 97; O2SAT 95
== END 2024-06-27 19:54 | disposition home or self-care (01) ==
LOC: M ED 09:29 → M SDC 09:30
PROVIDERS: ATTEND Urology
DX: N13.2 Hydronephrosis with renal and ureteral calculous obstruction (principal); K21.9 Gastro-esophageal reflux disease without esophagitis; E78.5 Hyperlipidemia, unspecified; Z79.899 Other long term (current) drug therapy; Z90.49 Acquired absence of other specified parts of digestive tract; Z98.84 Bariatric surgery status; Z88.0 Allergy status to penicillin; Z88.1 Allergy status to other antibiotic agents; Z87.891 Personal history of nicotine dependence
CPT/HCPCS: 52356; 76000; 80048; 80076; 81001; 82365; 83690; 84702; 85025; 87086; 99284; C2617; J0131; J0690; J1100; J1171; J1885; J2371; J2405; J3010; Q9967

== ENCOUNTER → 2024-07-04 | Outpatient (REF) | payer OTHER ==
[~2024-07-04] MED LIST changes: +BUPR-766 PO; +KETO-204 PO; +ONDA-83 PO
[2024-07-04 13:29] LABS: APPEARANCE, URINE HAZY (CLEAR); BACTERIA, URINE AUTO 1+ (NEGATIVE); BILIRUBIN, URINE AUTO NEGATIVE (NEGATIVE); BLOOD, URINE BLOOD 3+ (NEGATIVE); COLOR, URINE YELLOW (YELLOW); GLUCOSE, URINE (UA) AUTO NEGATIVE (NEGATIVE); KETONE, URINE AUTO NEGATIVE (NEGATIVE); LEUKOCYTE ESTERASE, URINE AUTO 2+ (NEGATIVE); MUCUS, URINE SMALL (NEGATIVE); NITRITE, URINE AUTO NEGATIVE (NEGATIVE); PROTEIN, URINE AUTO 2+ mg/dL (NEGATIVE); RBC, URINE AUTO TNTC /HPF (0-3); SPECIFIC GRAVITY URINE AUTO 1.011 (1.002-1.035); SQUAMOUS EPITHELIAL CELL UR AU 9 /HPF (0-6); UROBILINOGEN, URINE AUTO 0.2 mg/dL (0.0-2.0); WBC, URINE AUTO 27 /HPF (0-3)
== END ==
LOC: M SMT 12:51
PROVIDERS: ATTEND Urology
DX: N39.0 Urinary tract infection, site not specified (principal)

== ENCOUNTER → 2024-09-21 | Outpatient (REF) | payer OTHER ==
[~2024-09-21] MED LIST changes: +HYDR12.510 PO; -HYDR12CA PO
[2024-09-21 20:06] LABS: AMORPHOUS SEDIMENT SMALL (NEGATIVE); APPEARANCE, URINE CLOUDY (CLEAR); BACTERIA, URINE AUTO 3+ (NEGATIVE); BILIRUBIN, URINE AUTO NEGATIVE (NEGATIVE); BLOOD, URINE BLOOD 2+ (NEGATIVE); GLUCOSE, URINE (UA) AUTO NEGATIVE (NEGATIVE); KETONE, URINE AUTO NEGATIVE (NEGATIVE); LEUKOCYTE ESTERASE, URINE AUTO 1+ (NEGATIVE); NITRITE, URINE AUTO NEGATIVE (NEGATIVE); PROTEIN, URINE AUTO NEGATIVE (NEGATIVE); RBC, URINE AUTO 9 /HPF (0-3); SPECIFIC GRAVITY URINE AUTO 1.013 (1.002-1.035); SQUAMOUS EPITHELIAL CELL UR AU 27 /HPF (0-6); UROBILINOGEN, URINE AUTO 0.2 mg/dL (0.0-2.0); WBC, URINE AUTO 16 /HPF (0-3)
== END ==
LOC: M LAB REF 18:34
DX: N39.0 Urinary tract infection, site not specified (principal)

== ENCOUNTER → 2024-10-07 | Outpatient (REF) | payer OTHER ==
[2024-10-07 12:37] LABS: APPEARANCE, URINE CLEAR (CLEAR); BACTERIA, URINE AUTO 1+ (NEGATIVE); BILIRUBIN, URINE AUTO NEGATIVE (NEGATIVE); BLOOD, URINE BLOOD NEGATIVE (NEGATIVE); GLUCOSE, URINE (UA) AUTO NEGATIVE (NEGATIVE); KETONE, URINE AUTO NEGATIVE (NEGATIVE); LEUKOCYTE ESTERASE, URINE AUTO NEGATIVE (NEGATIVE); MUCUS, URINE SMALL (NEGATIVE); NITRITE, URINE AUTO NEGATIVE (NEGATIVE); PROTEIN, URINE AUTO NEGATIVE (NEGATIVE); RBC, URINE AUTO 1 /HPF (0-3); SPECIFIC GRAVITY URINE AUTO 1.011 (1.002-1.035); SQUAMOUS EPITHELIAL CELL UR AU 3 /HPF (0-6); UROBILINOGEN, URINE AUTO 0.2 mg/dL (0.0-2.0); WBC, URINE AUTO 1 /HPF (0-3)
== END ==
LOC: M LAB REF 11:38
PROVIDERS: ATTEND Physician Assistant Medical
DX: N39.0 Urinary tract infection, site not specified (principal)

== ENCOUNTER → 2024-11-18 | Outpatient (REF) | payer OTHER ==
[~2024-11-18] MED LIST changes: -VITA500T17 PO; +VITA500T8 PO
== END ==
LOC: M LAB REF 17:32
PROVIDERS: ATTEND Internal Medicine Nephrology
DX: E83.118 Other hemochromatosis (principal)

== ENCOUNTER → 2025-01-10 | Outpatient (CLI) | payer OTHER | LOC: M PLAIMG 09:39 | PROVIDERS: ATTEND Urology | DX: Z87.442 Personal history of urinary calculi (principal) ==